=== PATIENT | female | born 1995 | race American Indian/Alaskan Native ===

== ENCOUNTER 2016-09-01 01:42 | Emergency (ER) | payer SELFPAY | END 2016-09-01 05:23 | disposition left against medical advice (07) | LOC: ED 01:42 | DX: S80.211A Abrasion, right knee, initial encounter (principal); S50.312A Abrasion of left elbow, initial encounter; S00.81XA Abrasion of other part of head, initial encounter; X58.XXXA Exposure to other specified factors, initial encounter; Y93.9 Activity, unspecified; Y99.9 Unspecified external cause status; Y92.89 Other specified places as the place of occurrence of the external cause; Z53.21 Procedure and treatment not carried out due to patient leaving prior to being seen by health care provider ==

== ENCOUNTER 2016-11-03 21:34 | Emergency (ER) | payer SELFPAY ==
[2016-11-03 21:50] VITALS: BP 122/70
[2016-11-03] MEDS ORDERED: DUONEB 0.5 MG-3 MG/3 ML SOLN IH ONE ×2 (21:55→22:06)
[2016-11-04] MEDS ORDERED: DUONEB 0.5 MG-3 MG/3 ML SOLN IH SCH (08:00)
== END 2016-11-04 07:12 | disposition left against medical advice (07) ==
LOC: ED 21:34
DX: R06.00 Dyspnea, unspecified (principal); Z53.21 Procedure and treatment not carried out due to patient leaving prior to being seen by health care provider

== ENCOUNTER 2019-01-31 22:05 | Emergency (ER) | payer SELFPAY ==
[2019-02-01] MEDS ORDERED: PROVENTIL IH ONE (00:35)
[2019-02-01] MEDS ORDERED: ATROVENT IH ONE (00:35)
[2019-02-01] MEDS ORDERED: DECADRON IM ONE (00:35)
[2019-02-01] MEDS ORDERED: DELTASONE PO ONE (00:54)
--- NOTE | 2019-02-01 00:58 | Emergency Department Report ---
ED Asthma HPI - General Chief Complaint: Dyspnea/Respdistress Stated Complaint: CHEST PAIN, WHEEZING, CHEST TIGHTNESS Time Seen by Provider: 02/01/19 00:31 Source: patient Mode of arrival: Ambulatory Limitations: No Limitations - History of Present Illness Initial Comments: Patient is a 23-year-old female presents to emergency room with complaints of an asthma exacerbation that occurred 4 hours ago. she has associated shortness of breath, wheezing, chest tightness. she denies any fever, cough, rhinorrhea, any other symptoms. She has a past medical history of asthma and uses an albuterol inhaler. She ran out of her inhaler this morning. She states she was last admitted for her asthma 5 years ago. she denies any other past medical history or allergies to medications. She does not have a primary care doctor and states she usually goes to [facility] to have her medications refilled. - Related Data Previous Rx's Medication Instructions Recorded Last Taken Type ALBUTEROL Inhaler (OR & NICU) 2 puff IH QID PRN #1 inhalation 02/01/19 Unknown Rx [ProAir HFA Inhaler] predniSONE [Deltasone] 40 mg PO QDAY 5 Days #10 tab 02/01/19 Unknown Rx Allergies Allergy/AdvReac Type Severity Reaction Status Date / Time carrot Allergy Angioedema Verified 09/01/16 01:50 peanut AdvReac Unknown Verified 05/26/15 01:58 fruit Allergy Angioedema Uncoded 09/01/16 01:50 ED Review of Systems ROS: Stated complaint: CHEST PAIN, WHEEZING, CHEST TIGHTNESS Other details as noted in HPI Comment: All other systems reviewed and negative ED Past Medical Hx - Past Medical History Hx Asthma: Yes - Surgical History Past Surgical History?: No - Social History Smoking Status: Never Smoker - Medications Home Medications: Home Medications Medication Instructions Recorded Confirmed Last Taken Type ALBUTEROL Inhaler (OR & NICU) 2 puff IH QID PRN #1 inhalation 02/01/19 Unknown Rx [ProAir HFA Inhaler] predniSONE [Deltasone] 40 mg PO QDAY 5 Days #10 tab 02/01/19 Unknown Rx ED Physical Exam - General Limitations: No Limitations General appearance: alert, in no apparent distress - Head Head exam: Present: atraumatic, normocephalic - Eye Eye exam: Present: normal appearance - ENT ENT exam: Present: normal orophraynx, mucous membranes moist - Respiratory Respiratory exam: Present: wheezes (upper lung thurman bilaterally), decreased breath sounds (bases), prolonged expiratory. Absent: respiratory distress, rales, rhonchi, stridor, chest wall tenderness, accessory muscle use - Cardiovascular Cardiovascular Exam: Present: regular rate, normal rhythm, normal heart sounds. Absent: systolic murmur, diastolic murmur, rubs, gallop - Neurological Exam Neurological exam: Present: alert, oriented X3 - Psychiatric Psychiatric exam: Present: normal affect, normal mood - Skin Skin exam: Present: warm, dry, intact ED Course Vital Signs 01/31/19 02/01/19 02/01/19 22:08 01:05 02:45 Temperature 98.3 F 98.6 F Pulse Rate 86 73 Pulse Rate [ 82 Bilateral Throughout] Respiratory 20 20 Rate Respiratory 18 Rate [Bilateral Throughout] Blood Pressure 125/71 Blood Pressure 122/70 [Left] O2 Sat by Pulse 99 100 Oximetry - Reevaluation(s) Reevaluation #1: 02/01/19 02:24 s/p nebulizer treatment, pt now has good air movement, wheezing has signficantly improved ED Medical Decision Making - Medical Decision Making Patient is a 23-year-old female presents to emergency room with complaints of an asthma exacerbation that occurred 4 hours ago. she has associated shortness of breath, wheezing, chest tightness. she denies any fever, cough, rhinorrhea, any other symptoms. She has a past medical history of asthma and uses an albuterol inhaler. She ran out of her inhaler this morning. She states she was last admitted for her asthma 5 years ago. she denies any other past medical history or allergies to medications. She does not have a primary care doctor and states she usually goes to [facility] to have her medications refilled. on exam: wheezing in the upper lung thurman bilaterally, decreased breath sounds in the lower lung thurman bilaterally, prolonged expiratory. pt refused chest xray. pt refused IM decadron or IV medication. pt states she just wants oral steroids. she states the "shot hurts too bad" pt given neb tx and oral steroids. wheezing significantly improved, pt has good air movement. vitals are normal. pt given prescription for inhaler and oral steroids. advised pt to take medication as prescribed. Please follow up with a primary care doctor in the next 2-3 days. given a list of community resources so that you can have your asthma medications refilled on a regular basis by a primary care doctor. Return to the emergency room for any new or worsening symptoms. Critical care attestation.: If time is entered above; I have spent that time in minutes in the direct care of this critically ill patient, excluding procedure time. ED Disposition Clinical Impression: Asthma Qualifiers: Asthma severity: unspecified severity Asthma persistence: unspecified Asthma complication type: with acute exacerbation Qualified Code(s): J45.901 - Unspecified asthma with (acute) exacerbation Disposition: TO HOME OR SELFCARE Is pt being admited?: No Does the pt Need Aspirin: No Condition: Stable Instructions: Asthma (ED) Additional Instructions: Take medication as prescribed. Please follow up with a primary care doctor in the next 2-3 days. given a list of community resources so that you can have your asthma medications refilled on a regular basis by a primary care doctor. Return to the emergency room for any new or worsening symptoms. Prescriptions: predniSONE [Deltasone] 40 mg PO QDAY 5 Days #10 tab ALBUTEROL Inhaler (OR & NICU) [ProAir HFA Inhaler] 2 puff IH QID PRN #1 inhalation PRN Reason: Shortness Of Breath Referrals: NANDO HILL MD [Primary Care Provider] - 2-3 Days [facility] [Outside] - 2-3 Days [facility] [Outside] - 2-3 Days Time of Disposition: 02:26 Print Language: EMIRATI
[2019-02-01 05:06] VITALS: BP 122/70
== END 2019-02-01 02:45 | disposition home or self-care (01) ==
LOC: ED 22:05
DX: J45.901 Unspecified asthma with (acute) exacerbation (principal); Z91.018 Allergy to other foods
CPT/HCPCS: 93005; 93010; 94644; 96372; 99283; J1100; J7512

== ENCOUNTER 2019-04-18 10:00 | Emergency (ER) | payer SELFPAY ==
[2019-04-18] MEDS ORDERED: IPRATROPIUM/ALBUTEROL SULFATE 3 ML AMPUL.NEB IH ONE (10:05)
[2019-04-18] MEDS ORDERED: ALBUTEROL 2.5 MG/3 ML NEBU IH ONE (10:19)
[2019-04-18] MEDS ORDERED: IPRATROPIUM 0.02% NEBU 2.5 ML IH ONE (10:19)
[2019-04-18] MEDS ORDERED: methylPREDNISolone Sod Succinate 125 MG/2 ML INJ IM ONE (10:20)
--- NOTE | 2019-04-18 10:25 | Emergency Department Report ---
ED Asthma HPI - General Chief Complaint: Dyspnea/Respdistress Stated Complaint: ASTHMA ATTACK Time Seen by Provider: 04/18/19 10:14 Source: patient Mode of arrival: Ambulatory Limitations: No Limitations - History of Present Illness Initial Comments: 24-year-old -Irish female patient with history of asthma presents today with asthma exacerbation beginning this morning. Patient states she ran out of her albuterol inhaler yesterday. She denies any daily medication for her asthma, fever/chills/sweats/chest pain, productive cough, control, or history of DVT/PE/leg pain or swelling/recent long travel. She states this feels like her asthma. -: Sudden, hour(s) Asthma History: childhood onset Context: ran out of meds Associated Symptoms: dry cough - Related Data Current Asthma Therapy: inhaled bronchodilator Previous Rx's Medication Instructions Recorded Last Taken Type ALBUTEROL Inhaler (OR & NICU) 2 puff IH QID PRN #1 inhalation 04/18/19 Unknown Rx [ProAir HFA Inhaler] predniSONE [Deltasone] 20 mg PO TID 3 Days #9 tab 04/18/19 Unknown Rx Allergies Allergy/AdvReac Type Severity Reaction Status Date / Time carrot Allergy Angioedema Verified 09/01/16 01:50 peanut AdvReac Unknown Verified 05/26/15 01:58 fruit Allergy Angioedema Uncoded 09/01/16 01:50 ED Review of Systems ROS: Stated complaint: ASTHMA ATTACK Other details as noted in HPI Constitutional: denies: chills, fever ENT: denies: throat pain Respiratory: cough, shortness of breath Cardiovascular: denies: chest pain, palpitations, edema, syncope Endocrine: denies: excessive sweating Gastrointestinal: denies: abdominal pain, nausea, vomiting Musculoskeletal: denies: myalgia Skin: denies: rash, lesions Neurological: denies: headache, weakness Psychiatric: denies: anxiety ED Past Medical Hx - Past Medical History Previous Medical History?: Yes Hx Asthma: Yes - Surgical History Past Surgical History?: No - Social History Smoking Status: Never Smoker Substance Use Type: None - Medications Home Medications: Home Medications Medication Instructions Recorded Confirmed Last Taken Type ALBUTEROL Inhaler (OR & NICU) 2 puff IH QID PRN #1 inhalation 04/18/19 Unknown Rx [ProAir HFA Inhaler] predniSONE [Deltasone] 20 mg PO TID 3 Days #9 tab 04/18/19 Unknown Rx ED Physical Exam - General Limitations: No Limitations General appearance: alert, in no apparent distress - Head Head exam: Present: atraumatic, normocephalic - Eye Eye exam: Present: normal appearance - ENT ENT exam: Present: mucous membranes moist - Neck Neck exam: Present: normal inspection. Absent: lymphadenopathy - Respiratory Respiratory exam: Present: wheezes. Absent: rales, rhonchi, chest wall tenderness, accessory muscle use - Cardiovascular Cardiovascular Exam: Present: regular rate, normal rhythm, tachycardia (mild), normal heart sounds - GI/Abdominal GI/Abdominal exam: Present: soft, normal bowel sounds. Absent: distended, tenderness - Rectal Rectal exam: Present: deferred - Extremities Exam Extremities exam: Absent: pedal edema, calf tenderness - Back Exam Back exam: Present: full ROM - Neurological Exam Neurological exam: Present: alert, oriented X3 - Psychiatric Psychiatric exam: Present: normal affect, normal mood - Skin Skin exam: Present: warm, dry, intact, normal color. Absent: rash ED Course Vital Signs 04/18/19 04/18/19 04/18/19 10:04 10:28 11:45 Temperature 98.3 F 98.4 F Pulse Rate 110 H 101 H Pulse Rate [ 107 H Anterior Bilateral Throughout] Respiratory 16 16 Rate Respiratory 20 Rate [Anterior Bilateral Throughout] Blood Pressure 141/62 Blood Pressure 105/63 [Right] O2 Sat by Pulse 94 97 Oximetry ED Medical Decision Making - Medical Decision Making Patient with history of asthma presents for asthma exacerbation starting this morning. She states she ran out of her albuterol inhaler. Patient states this does feel like her normal asthma exacerbation and refuses any labs or chest x- ray. After one continuous neb and prednisone 20 mg by mouth patient states shortness of breath has fully resolved. She denies any chest pain, leg swelling, fever, or other complaints. Heart rate remains mildly elevated at 101likely due to neb treatment. Albuterol inhaler refilled. Recommend follow- up at [facility]. Return precautions were discussed in detail with patient who states understanding. Critical care attestation.: If time is entered above; I have spent that time in minutes in the direct care of this critically ill patient, excluding procedure time. ED Disposition Clinical Impression: Asthma exacerbation Qualifiers: Asthma severity: mild Asthma persistence: intermittent Qualified Code(s): J45.21 - Mild intermittent asthma with (acute) exacerbation Disposition: TO HOME OR SELFCARE Is pt being admited?: No Condition: Stable Instructions: Asthma (ED) Prescriptions: predniSONE [Deltasone] 20 mg PO TID 3 Days #9 tab ALBUTEROL Inhaler (OR & NICU) [ProAir HFA Inhaler] 2 puff IH QID PRN #1 inhalation PRN Reason: Shortness Of Breath Referrals: [facility] [Provider Group] - 3-5 Days Time of Disposition: 11:34
[2019-04-18] MEDS ORDERED: predniSONE 20 MG TAB PO NR (11:00)
[2019-04-18 11:46] VITALS: BP 105/63
== END 2019-04-18 12:18 | disposition home or self-care (01) ==
LOC: ED 10:00
DX: J45.901 Unspecified asthma with (acute) exacerbation (principal); Z91.010 Allergy to peanuts; Z91.018 Allergy to other foods; Z79.899 Other long term (current) drug therapy
CPT/HCPCS: 94644; 99282; J2930

== ENCOUNTER 2020-03-08 19:54 | Emergency (ER) | payer SELFPAY ==
--- NOTE | 2020-03-08 21:54 | XRay Report ---
CHEST 2 VIEWS INDICATION / CLINICAL INFORMATION: cough and wheezing.. COMPARISON: 06/13/2019 FINDINGS: SUPPORT DEVICES: None. HEART / MEDIASTINUM: No significant abnormality. LUNGS / PLEURA: No significant pulmonary or pleural abnormality. No pneumothorax. ADDITIONAL FINDINGS: No significant additional findings. IMPRESSION: 1. No acute findings. Signer Name: Bijan Nichole MD Signed: 03/08/2020 9:49 PM Workstation Name: [id number]
[2020-03-08] MEDS ORDERED: ALBUTEROL 2.5 MG/3 ML NEBU IH ONE (22:24)
[2020-03-08] MEDS ORDERED: IPRATROPIUM 0.02% NEBU 2.5 ML IH ONE (22:24)
--- NOTE | 2020-03-08 23:37 | Emergency Department Report ---
ED General Adult HPI - General Chief complaint: Adult Asthma Stated complaint: CHEST PAIN ASTHMA Time Seen by Provider: 03/08/20 22:28 Source: patient Mode of arrival: Ambulatory Limitations: No Limitations - History of Present Illness Initial comments: 25-year-old -[place] female patient presents with complaints of asthma exacerbation starting this morning. Patient states her pro-air and nebulizer at home were not working for her symptoms. She believes her asthma became exacerbated from smoking hookah last night while out at a club. She denies any cough, hemoptysis, fever/chills/sweats, chest pain, leg pain/swelling, abdominal pain, nausea/vomiting/diarrhea. Patient states this feels like her asthma. -: Sudden - Related Data Previous Rx's Medication Instructions Recorded Last Taken Type predniSONE [Deltasone] 20 mg PO TID 3 Days #9 tab 04/18/19 Unknown Rx Albuterol Mdi (or & Nicu Only) 2 puff IH QID PRN #1 inhalation 03/08/20 Unknown Rx [ProAir HFA Inhaler] Diclofenac Sodium 75 mg PO BID PRN #14 tablet.dr 03/08/20 Unknown Rx Prednisone [predniSONE 10 mg 10 mg PO .TAPER #1 tab.ds.pk 03/08/20 Unknown Rx (6-Day Pack, 21 Tabs)] Allergies Allergy/AdvReac Type Severity Reaction Status Date / Time carrot Allergy Angioedema Verified 09/01/16 01:50 peanut AdvReac Unknown Verified 05/26/15 01:58 fruit Allergy Angioedema Uncoded 09/01/16 01:50 ED Review of Systems ROS: Stated complaint: CHEST PAIN ASTHMA Other details as noted in HPI Constitutional: denies: chills, diaphoresis, fever, malaise, weakness ENT: denies: throat pain Respiratory: shortness of breath. denies: cough Cardiovascular: denies: chest pain Gastrointestinal: denies: abdominal pain, nausea, vomiting Musculoskeletal: denies: joint swelling, arthralgia Skin: denies: rash, lesions, change in color Neurological: denies: headache Hematological/Lymphatic: denies: swollen glands ED Past Medical Hx - Past Medical History Previous Medical History?: Yes Hx Asthma: Yes - Surgical History Past Surgical History?: No - Social History Smoking Status: Never Smoker Substance Use Type: None - Medications Home Medications: Home Medications Medication Instructions Recorded Confirmed Last Taken Type predniSONE [Deltasone] 20 mg PO TID 3 Days #9 tab 04/18/19 Unknown Rx Albuterol Mdi (or & Nicu Only) 2 puff IH QID PRN #1 inhalation 03/08/20 Unknown Rx [ProAir HFA Inhaler] Diclofenac Sodium 75 mg PO BID PRN #14 tablet. 03/08/20 Unknown Rx Prednisone [predniSONE 10 mg 10 mg PO .TAPER #1 tab.ds.pk 03/08/20 Unknown Rx (6-Day Pack, 21 Tabs)] ED Physical Exam - General Limitations: No Limitations General appearance: alert, in no apparent distress - Head Head exam: Present: atraumatic, normocephalic - Eye Eye exam: Present: normal appearance - ENT ENT exam: Present: mucous membranes moist - Neck Neck exam: Present: normal inspection - Respiratory Respiratory exam: Present: wheezes. Absent: normal lung sounds bilaterally, respiratory distress, rales, rhonchi, chest wall tenderness, accessory muscle u se - Cardiovascular Cardiovascular Exam: Present: regular rate, normal rhythm. Absent: systolic murmur, diastolic murmur, rubs, gallop - GI/Abdominal GI/Abdominal exam: Present: soft. Absent: tenderness - Extremities Exam Extremities exam: Present: full ROM. Absent: calf tenderness - Back Exam Back exam: Present: normal inspection - Neurological Exam Neurological exam: Present: alert, oriented X3 - Psychiatric Psychiatric exam: Present: normal affect, normal mood - Skin Skin exam: Present: warm, dry, intact, normal color. Absent: rash, cyanosis, diaphoretic, erythema ED Course Vital Signs 03/08/20 03/09/20 20:58 00:15 Temperature 98.8 F 98.1 F Pulse Rate 86 87 Respiratory 16 17 Rate Blood Pressure 120/63 Blood Pressure 127/77 [Left] O2 Sat by Pulse 98 99 Oximetry ED Medical Decision Making - Radiology Data Radiology results: report reviewed CHEST 2 VIEWS INDICATION / CLINICAL INFORMATION: cough and wheezing.. COMPARISON: 06/13/2019 FINDINGS: SUPPORT DEVICES: None. HEART / MEDIASTINUM: No significant abnormality. LUNGS / PLEURA: No significant pulmonary or pleural abnormality. No pneumothorax. ADDITIONAL FINDINGS: No significant additional findings. IMPRESSION: 1. No acute findings. - Medical Decision Making 25-year-old -Bul[place] female patient presents with complaints of asthma exacerbation starting this morning. Patient states her pro-air and nebulizer at home were not working for her symptoms. She believes her asthma became exacerbated from smoking hookah last night while out at a club. She denies any cough, hemoptysis, fever/chills/sweats, chest pain, leg pain/swelling, abdominal pain, nausea/vomiting/diarrhea. Patient states this feels like her asthma. Wheezing noted diffusely in the lungs on exam. Patient given hour-long DuoNeb. On repeat exam, wheezing has resolved. Chest x-ray is normal. Patient states she is feeling well and denies any further wheezing or shortness of breath. Refill given for pro-air. Medrol Dosepak for home. Her vitals are normal, she is well-appearing, and she is stable for discharge home. Strict return precautions were discussed in detail with patient who verbalized understanding peer Critical care attestation.: If time is entered above; I have spent that time in minutes in the direct care of this critically ill patient, excluding procedure time. ED Disposition Clinical Impression: Asthma exacerbation Qualifiers: Asthma severity: mild Asthma persistence: intermittent Qualified Code(s): J45.21 - Mild intermittent asthma with (acute) exacerbation Disposition: DC-01 TO HOME OR SELFCARE Is pt being admited?: No Condition: Stable Instructions: Asthma (ED) Prescriptions: Diclofenac Sodium 75 mg PO BID PRN #14 tablet. PRN Reason: back pain Prednisone [predniSONE 10 mg (6-Day Pack, 21 Tabs)] 10 mg PO .TAPER #1 tab.ds.pk Albuterol Mdi (or & Nicu Only) [ProAir HFA Inhaler] 2 puff IH QID PRN #1 inhalation PRN Reason: Shortness Of Breath Referrals: PRIMARY CARE,MD [Primary Care Provider] - 3-5 Days
[2020-03-09 00:48] VITALS: BP 127/77
== END 2020-03-09 00:15 | disposition home or self-care (01) ==
LOC: ED 19:54
DX: J45.901 Unspecified asthma with (acute) exacerbation (principal); Z79.899 Other long term (current) drug therapy; Z91.010 Allergy to peanuts; Z91.018 Allergy to other foods
CPT/HCPCS: 71046; 93005; 94640; 99283

== ENCOUNTER 2020-03-16 21:10 | Inpatient (IN) | payer OTHER ==
[2020-03-16] MEDS ORDERED: IPRATROPIUM 0.02% NEBU 2.5 ML IH ONE ×3 (21:16→22:02)
[2020-03-16] MEDS ORDERED: ALBUTEROL 2.5 MG/3 ML NEBU IH ONE ×3 (21:16→22:02)
[2020-03-16] MEDS ORDERED: MAGNESIUM SULFATE 2 GM/50 ML BAG IV ONE ×2 (21:17→21:19)
[2020-03-16] MEDS ORDERED: methylPREDNISolone Sod Succinate 125 MG/2 ML INJ IV ONE (21:17)
[2020-03-16] MEDS ORDERED: EPINEPHrine/PF 1 MG/1 ML INJ ONE (21:18)
[2020-03-16] MEDS ORDERED: methylPREDNISolone Sod Succinate 125 MG/2 ML INJ ONE (21:19)
[2020-03-16] MEDS ORDERED: EPINEPHrine/PF 1 MG/1 ML INJ SUB-Q ONE (21:19)
[2020-03-16] MEDS ORDERED: ROCURONIUM 50 MG/5 ML INJ IV ONE ×2 (21:20→23:51)
[2020-03-16] MEDS ORDERED: ETOMIDATE 20 MG/10 ML INJ IV ONE ×2 (21:20→23:50)
[2020-03-16] MEDS ORDERED: SODIUM CHLORIDE 0.9% 1000 ML 1,000 ML ONE (21:21)
[2020-03-16] MEDS ORDERED: LORazepam 2 MG/ML VIAL ONE (21:23)
--- NOTE | 2020-03-16 21:29 | Emergency Department Report ---
ED Asthma HPI - General Chief Complaint: Dyspnea/Respdistress Stated Complaint: DAFNE/ASTHMA PUI?: No Time Seen by Provider: 03/16/20 21:10 Source: patient Mode of arrival: Stretcher Limitations: No Limitations - History of Present Illness Initial Comments: Patient states she was eating salad and then went into an asthma attack as well as hives. Patient states she is not sure what allergen she was exposed to. Patient states she has a long history of asthma and has been intubated in the past. Patient states her shortness of breath is worse with movement better with rest. Patient states she has very sensitive asthma. Patient states she was eating a salad and instantly had difficulties breathing, feels like her throat was swelling. Patient denies recent travel. Patient denies recent international travel. Patient denies exposure to the novel coronavirus. Patient denies sick contacts. Patient denies fever and chills. Patient denies cough. Patient denies diarrhea. Patient denies coming in contact with anybody with symptoms of the novel coronavirus. MD Complaint: "asthma attack", shortness of breath, wheezing -: Sudden Severity: severe Context: allergen exposure Associated Symptoms: dry cough - Related Data Current Asthma Therapy: none Previous Rx's Medication Instructions Recorded Last Taken Type predniSONE [Deltasone] 20 mg PO TID 3 Days #9 tab 04/18/19 Unknown Rx Albuterol Mdi (or & Nicu Only) 2 puff IH QID PRN #1 inhalation 03/08/20 Unknown Rx [ProAir HFA Inhaler] Diclofenac Sodium 75 mg PO BID PRN #14 tablet.dr 03/08/20 Unknown Rx Prednisone [predniSONE 10 mg 10 mg PO .TAPER #1 tab.ds.pk 03/08/20 Unknown Rx (6-Day Pack, 21 Tabs)] Allergies Allergy/AdvReac Type Severity Reaction Status Date / Time carrot Allergy Angioedema Verified 09/01/16 01:50 peanut AdvReac Unknown Verified 05/26/15 01:58 fruit Allergy Angioedema Uncoded 09/01/16 01:50 ED Review of Systems ROS: Stated complaint: DAFNE/ASTHMA Other details as noted in HPI Comment: All other systems reviewed and negative ED Past Medical Hx - Past Medical History Previous Medical History?: Yes Hx Asthma: Yes - Surgical History Past Surgical History?: No - Family History Family history: no significant - Social History Smoking Status: Never Smoker Substance Use Type: None - Medications Home Medications: Home Medications Medication Instructions Recorded Confirmed Last Taken Type predniSONE [Deltasone] 20 mg PO TID 3 Days #9 tab 04/18/19 Unknown Rx Albuterol Mdi (or & Nicu Only) 2 puff IH QID PRN #1 inhalation 03/08/20 Unknown Rx [ProAir HFA Inhaler] Diclofenac Sodium 75 mg PO BID PRN #14 tablet.dr 03/08/20 Unknown Rx Prednisone [predniSONE 10 mg 10 mg PO .TAPER #1 tab.ds.pk 03/08/20 Unknown Rx (6-Day Pack, 21 Tabs)] ED Physical Exam - General Limitations: Physical Limitation General appearance: alert, in distress - Head Head exam: Present: atraumatic, normocephalic - Eye Eye exam: Present: normal appearance, PERRL Pupils: Present: normal accommodation - ENT ENT exam: Present: mucous membranes dry - Neck Neck exam: Present: normal inspection, full ROM. Absent: tenderness - Respiratory Respiratory exam: Present: respiratory distress, wheezes, chest wall tenderness, accessory muscle use, decreased breath sounds - Cardiovascular Cardiovascular Exam: Present: regular rate, normal rhythm. Absent: systolic murmur, diastolic murmur, rubs, gallop - GI/Abdominal GI/Abdominal exam: Present: soft, normal bowel sounds. Absent: distended, tenderness, guarding - Rectal Rectal exam: Present: deferred - Extremities Exam Extremities exam: Present: normal inspection - Back Exam Back exam: Present: normal inspection - Neurological Exam Neurological exam: Present: alert, oriented X3 - Psychiatric Psychiatric exam: Present: normal affect, normal mood - Skin Skin exam: Present: warm, dry, intact, normal color. Absent: rash ED Course Vital Signs 03/16/20 03/16/20 03/16/20 21:59 22:04 23:34 Pulse Rate 106 H 95 H Pulse Rate [ 105 H Bilateral Throughout] Respiratory 20 Rate [Bilateral Throughout] Blood Pressure 165/82 138/68 O2 Sat by Pulse 98 100 Oximetry - Reevaluation(s) Reevaluation #1: After initial evaluation 3. Patient became unresponsive. Patient will be intubated. Patient was hypoxic and unable to maintain airway. Patient will be transferred to room 20. Respiratory notified. 03/16/20 21:15 Reevaluation #2: Patient intubated without difficulty. See procedure note. Lowest oxygen sat 7 0% 03/16/20 21:25 Reevaluation #3: Patient on the ekg monitor tech. Patient's blood pressure improved. Patient's vital signs have stabilized. Patient has a Potts placed. Patient will receive another breathing treatment. Patient still wheezing. 03/16/20 21:43 Reevaluation #4: Patient moving. Patient will require more sedation. Patient restrained. Patient placed on a fentanyl drip. 03/16/20 23:13 - Consultations Consultation #1: Hospitalist consulted for admission. Hospitalist to admit patient. 03/16/20 23:17 - Intubation Time Out Performed: Yes Sedative: Etomidate Paralytic: Rocuronium Laryngoscope: fiberoptic video scope Size: 4 Assist Device Used: fiberoptic device ET Tube Size: 7.5 Tube Secured Depth (cm): 22 Tube Secured Location: teeth Tube Placement Confirmation: visualized tube passing t, equal breath sounds adriana at, no breath sounds over epi, confirmation by capnometr Patient Tolerated Procedure: well, no complications Intubation Complications: none ED Medical Decision Making - Lab Data Result diagrams: 03/16/20 21:43 03/16/20 21:43 - Radiology Data Radiology results: report reviewed, image reviewed interpreted by me: Chest x-ray: No pneumonia, no pneumothorax, no foreign body, no osseous findings, no acute findings. ET tube in good placement. NG tube in good placement. CHEST 1 VIEW, 03/16/2020 9:37 PM CLINICAL INFORMATION/INDICATION: Shortness of breath. Endotracheal tube placement COMPARISON: Chest radiograph, 03/08/2020 FINDINGS: SUPPORT DEVICES: Endotracheal tube has been placed with tip approximately 3.5 cm above the level of the ester. An esophagogastric tube has also been placed with distal and below the level of the diaphragm.. HEART: The cardiac silhouette is normal in size. LUNGS/PLEURA: The lungs are clear of focal airspace disease, pleural effusion or pneumothorax. ADDITIONAL FINDINGS: No additional acute findings. IMPRESSION: 1. Placement of endotracheal tube and esophagogastric tube as above - Medical Decision Making Patient is a 25-year-old female that presents emergency room with complaints of difficulty breathing, hives, allergy and allergic reaction. Patient states she was out having a salad and instantly developed symptoms. Patient did not have an EpiPen. Patient came in with severe respiratory distress. Patient eventually unable to maintain airway and patient was intubated. Patient went unresponsive just prior to intubation. Patient tolerated intubation well. Patient's chest x-ray shows adequate placement of the NG tube and ET tube. Patient does not have a pneumonia on x-ray. Patient's labs are essentially unre markable except for lactic acidosis, respiratory acidosis and elevated WBC. Patient given fluids and antibiotics prophylactically. Patient given 3 L of fluid. Patient patient placed on vent with drips for sedation. Patient on propofol and then required more sedation with fentanyl. Patient admitted to the hospitalist service. Patient admitted into the ICU. - Differential Diagnosis Status asthmaticus, respiratory failure, anaphylactic shock, pneumonia Critical Care Time: Yes Critical care time in (mins) excluding proc time.: 45 Critical care attestation.: If time is entered above; I have spent that time in minutes in the direct care of this critically ill patient, excluding procedure time. Critical Care Time: 45 MINUTES ED Disposition Clinical Impression: Respiratory distress, Respiratory acidosis, Lactic acid acidosis Asthma exacerbation Qualifiers: Asthma severity: severe Asthma persistence: persistent Qualified Code(s): J45.51 - Severe persistent asthma with (acute) exacerbation Status asthmaticus Qualifiers: Asthma severity: severe Asthma persistence: persistent Qualified Code(s): J45.52 - Severe persistent asthma with status asthmaticus Anaphylactic reaction Qualifiers: Encounter type: initial encounter Qualified Code(s): T78.2XXA - Anaphylactic shock, unspecified, initial encounter Respiratory failure Qualifiers: Chronicity: acute Respiratory failure complication: hypoxia Qualified Code(s): J96.01 - Acute respiratory failure with hypoxia Disposition: 09 OP ADMIT IP TO THIS HOSP Is pt being admited?: Yes Does the pt Need Aspirin: No Condition: Critical Time of Disposition: 23:14
[2020-03-16] MEDS ORDERED: LIP THERAPY VASELINE TP PRN (21:30)
[2020-03-16] MEDS ORDERED: MINERAL OIL/PETROLATUM, WHITE OPHTH OINT 3.5 GM OU PRN (21:30)
[2020-03-16] MEDS ORDERED: SODIUM CHLORIDE 0.9% 1000 ML 1,000 ML IV ONE (21:39)
[2020-03-16] MEDS ORDERED: SODIUM CHLORIDE 0.9% 1000 ML IV SOLN IV ONE (21:40)
[2020-03-16] MEDS ORDERED: CEFEPIME/NS 2 GM/100 ML 2 GM/100 ML BAG IV ONE (21:41)
[2020-03-16] MEDS ORDERED: HYDROGEN PEROXIDE 118 ML SOLUTION ONE (21:56)
[2020-03-16 21:59] LABS: Hematocrit 40.9 % (30.3-42.9); Hemoglobin 13.4 gm/dl (10.1-14.3); Mean Corpuscular HGB Conc 33 % (30-34); Mean Corpuscular Volume 99 fl (79-97); Platelet Count 259 K/mm3 (140-440); Red Blood Count 4.14 M/mm3 (3.65-5.03)
[2020-03-16 22:02] LABS: Bilirubin,Urine NEG (Negative); Blood,Urine SM (Negative); Color,Urine Yellow (Yellow); Mucus,Urine FEW /HPF; Protein,Urine <15 mg/dL mg/dL (Negative); RBC,Urine < 1.0 /HPF (0.0-6.0); Urobilinogen,Urine < 2.0 mg/dL (<2.0)
--- NOTE | 2020-03-16 22:14 | XRay Report ---
CHEST 1 VIEW, 03/16/2020 9:37 PM CLINICAL INFORMATION/INDICATION: Shortness of breath. Endotracheal tube placement COMPARISON: Chest radiograph, 03/08/2020 FINDINGS: SUPPORT DEVICES: Endotracheal tube has been placed with tip approximately 3.5 cm above the level of t he ester. An esophagogastric tube has also been placed with distal and below the level of the diaphr agm.. HEART: The cardiac silhouette is normal in size. LUNGS/PLEURA: The lungs are clear of focal airspace disease, pleural effusion or pneumothorax. ADDITIONAL FINDINGS: No additional acute findings. IMPRESSION: 1. Placement of endotracheal tube and esophagogastric tube as above Signer Name: Janna Mendez MD Signed: 03/16/2020 10:10 PM Workstation Name: [id number]
[2020-03-16 22:22] LABS: Alanine Aminotransferase 11 units/L (7-56); Albumin 4.2 g/dL (3.9-5); BUN/Creatinine Ratio 18; Blood Urea Nitrogen 16 mg/dL (7-17); Calcium 8.9 mg/dL (8.4-10.2); Hemolysis Index 60
[2020-03-16 23:04] LABS: Band Neutrophils # (Manual) 0.4 K/mm3; Eosinophils % (Manual) 0 % (0.0-4.3); Ovalocytes Rare; Platelet Estimate Consistent w Auto; Total Cells Counted 100
[2020-03-16] MEDS ORDERED: fentaNYL 100 MCG/2 ML INJ IV PRN (23:11)
[2020-03-16] MEDS ORDERED: fentaNYL DRIP Premix 2,000 MCG/100 ML BAG IV ONE (23:14)
[2020-03-16] MEDS: fentaNYL DRIP Premix 2,000 MCG/100 ML BAG IV SCH (23:27)
[2020-03-17] MEDS ORDERED: ONDANSETRON 4 MG/2 ML INJ IV PRN (00:13)
[2020-03-17] MEDS ORDERED: SODIUM CHLORIDE 0.9% 1000 ML 1,000 ML IV SCH (00:15)
--- NOTE | 2020-03-17 00:27 | History and Physical Report ---
History of Present Illness Date of examination: 03/16/20 Date of admission: 03/16/2020 Chief complaint: Asthma attack Hives History of present illness: 25-year-old -[place] female with known history of asthma and peanut allergy presents to the emergency room today with an asthma attack and hives. Patient was eating some salad when symptoms suddenly developed. She started having difficulty breathing and felt her throat was closing up. She was found to be in severe respiratory distress upon arrival and subsequently intubated. Patient already intubated during my evaluation and therefore most of the history was gotten from the emergency room physician. Review of our records indicates she has been intubated on multiple occasions. Work-up in the emergency room did not reveal any acute abnormality on the chest x-ray. Patient is being admitted to the intensive care unit for asthma exacerbation/anaphylactic reaction. Past History Past Medical History: other (Asthma with h/o multiple intubations) Past Surgical History: No surgical history Social history: no significant social history Family history: no significant family history Medications and Allergies Allergies Allergy/AdvReac Type Severity Reaction Status Date / Time carrot Allergy Angioedema Verified 09/01/16 01:50 peanut AdvReac Unknown Verified 05/26/15 01:58 fruit Allergy Angioedema Uncoded 09/01/16 01:50 Home Medications Medication Instructions Recorded Confirmed Last Taken Type predniSONE [Deltasone] 20 mg PO TID 3 Days #9 tab 04/18/19 Unknown Rx Albuterol Mdi (or & Nicu Only) 2 puff IH QID PRN #1 inhalation 03/08/20 Unknown Rx [ProAir HFA Inhaler] Diclofenac Sodium 75 mg PO BID PRN #14 tablet.dr 03/08/20 03/17/20 Unknown Rx Prednisone [predniSONE 10 mg 10 mg PO .TAPER #1 tab.ds.pk 03/08/20 Unknown Rx (6-Day Pack, 21 Tabs)] Active Meds: Active Medications Albuterol/Ipratropium (Duoneb *Not For Prn Use*) 1 ampul IH Q6HRT [facility] Fentanyl (Sublimaze) 50 mcg IV Q10MIN PRN PRN Reason: ANALGESIA Hydrophilic Ointment (Vaseline Lip Therapy) 1 applic TP Q2HR PRN PRN Reason: Dry Lips Propofol (Diprivan 10 Mg/Ml) 1,000 mg in 100 mls @ 3.198 mls/hr IV TITR GARY; Protocol Last Admin: 03/16/20 21:40 Dose: 5 mcg/kg/min, 3.198 mls/hr Documented by: Fentanyl Citrate (Fentanyl Drip Premix) 2,000 mcg in 100 mls @ 4.309 mls/hr IV TITR [facility]ARY; Protocol Last Admin: 03/16/20 23:27 Dose: 1 mcg/kg/hr, 4.309 mls/hr Documented by: Sodium Chloride (Nacl 0.9% 1000 Ml) 1,000 mls @ 75 mls/hr IV DIRECT GAYR Multi-Ingred Cream/Lotion/Oil/Oint (Artificial Tears Ophth Oint) 1 applic OU Q4HR PRN PRN Reason: Dry Eye(s) Ondansetron HCl (Zofran) 4 mg IV Q8H PRN PRN Reason: Nausea And Vomiting Sodium Chloride (Sodium Chloride Flush Syringe 10 Ml) 10 ml IV BID GARY Sodium Chloride (Sodium Chloride Flush Syringe 10 Ml) 10 ml IV PRN PRN PRN Reason: LINE FLUSH Review of Systems ROS unobtainable: due to endotracheal tube Exam - Constitutional Vitals: Temp Pulse Resp BP Pulse Ox 95 H 20 138/68 100 03/16/20 23:34 03/16/20 22:04 03/16/20 23:34 03/16/20 23:34 General appearance: Present: no acute distress, well-nourished - EENT Eyes: Present: PERRL, EOM intact. Absent: scleral icterus ENT: hearing intact, clear oral mucosa, dentition normal - Neck Neck: Present: supple, normal ROM - Respiratory Respiratory effort: normal Respiratory: bilateral: wheezing - Cardiovascular Rhythm: regular Heart Sounds: Present: S1 & S2. Absent: gallop, systolic murmur, diastolic murmur, rub - Extremities Extremities: no ischemia, pulses intact, pulses symmetrical, No edema, Full ROM Peripheral Pulses: within normal limits - Abdominal General gastrointestinal: Present: soft, non-tender, non-distended. Absent: mass - Musculoskeletal Musculoskeletal: strength equal bilaterally - Psychiatric Psychiatric: cooperative - Neurologic Neurologic: CNII-XII intact, other (Intubated and Sedated.) Results - Labs CBC & Chem 7: 03/16/20 21:43 03/16/20 21:43 Labs: Abnormal lab results 03/16/20 03/16/20 03/16/20 Range/Units 21:43 21:43 21:52 WBC 22.3 H (4.5-11.0) K/mm3 MCV 99 H (79-97) fl MCH 33 H (28-32) pg Lymphocytes % (Manual) 42.0 H (13.4-35.0) % Seg Neutrophils # Man 10.5 H (1.8-7.7) K/mm3 Lymphocytes # (Manual) 9.4 H (1.2-5.4) K/mm3 Monocytes # (Manual) 1.3 H (0.0-0.8) K/mm3 Basophils # (Manual) 0.2 H (0.0-0.1) K/mm3 Carbon Dioxide 13 L (22-30) mmol/L Glucose 211 H (65-100) mg/dL Lactic Acid 9.00 H* (0.7-2.0) mmol/L 03/16/20 Range/Units 22:39 WBC (4.5-11.0) K/mm3 MCV (79-97) fl MCH (28-32) pg Lymphocytes % (Manual) (13.4-35.0) % Seg Neutrophils # Man (1.8-7.7) K/mm3 Lymphocytes # (Manual) (1.2-5.4) K/mm3 Monocytes # (Manual) (0.0-0.8) K/mm3 Basophils # (Manual) (0.0-0.1) K/mm3 Carbon Dioxide (22-30) mmol/L Glucose (65-100) mg/dL Lactic Acid 4.40 H* (0.7-2.0) mmol/L Assessment and Plan - Patient Problems (1) Anaphylactic reaction Current Visit: Yes Status: Acute Qualifiers: Encounter type: initial encounter Qualified Code(s): T78.2XXA - Anaphylactic shock, unspecified, initial encounter Plan to address problem: Unclear what patient reacted to today. She has had Solu-Medrol, Benadryl and epinephrine. We will monitor closely in the intensive care unit. (2) Asthma exacerbation Current Visit: Yes Status: Acute Qualifiers: Asthma severity: severe Asthma persistence: persistent Qualified Code(s): J45.51 - Severe persistent asthma with (acute) exacerbation Plan to address problem: Patient continued on nebulizing treatment and IV steroid. Patient currently intubated and has been intubated on multiple occasions. Consult placed to clam treader for further evaluation. (3) Respiratory acidosis Current Visit: Yes Status: Acute Plan to address problem: Secondary to the asthma exacerbation. Will monitor ABG. (4) DVT prophylaxis Current Visit: No Status: Acute Plan to address problem: Patient placed on subcutaneous Lovenox. (5) Full code status Current Visit: Yes Status: Acute
--- NOTE | 2020-03-17 00:37 | XRay Report ---
CHEST 1 VIEW INDICATION: Follow-up respiratory failure COMPARISON: 03/16/2020 FINDINGS: Support devices: Unchanged. Endotracheal tube appears to be in proper position. Heart: Normal and unchanged Lungs/Pleura: There has now developed significant atelectasis of the right upper lobe. Left lung serenity ins fully expanded and clear. IMPRESSION: 1. Right upper lobe atelectasis. Signer Name: Frederick Gonzales MD Signed: 03/17/2020 12:33 AM Workstation Name: [id number]
[2020-03-17] MEDS ORDERED: IPRATROPIUM/ALBUTEROL SULFATE 3 ML AMPUL.NEB IH ONE (02:44)
[2020-03-17] MEDS ORDERED: fentaNYL DRIP Premix 0 MCG/0 ML BAG IV ONE (04:47)
[2020-03-17] MEDS ORDERED: fentaNYL DRIP Premix 2,000 MCG/100 ML BAG IV ONE (05:00)
[2020-03-17] MEDS: fentaNYL DRIP Premix 2,000 MCG/100 ML BAG IV SCH ×2 (05:05→15:37)
[2020-03-17] MEDS: IPRATROPIUM/ALBUTEROL SULFATE 3 ML AMPUL.NEB IH SCH ×4 (05:50→21:05)
--- NOTE | 2020-03-17 10:27 | Event Note ---
Date: 03/17/20 Patient seen and evaluated Medications reviewed Patient still wheezing and tachypneic. Continue present regimen.
[2020-03-17] MEDS ORDERED: SIMPLE SYRUP 15 ML FEEDTUBE PRN ×2 (11:00)
[2020-03-17] MEDS ORDERED: LIPASE 10,500/PROTEASE 25,000/AMYLASE 43,750 (UNITS) DR CAP FEEDTUBE PRN (11:00)
[2020-03-17] MEDS ORDERED: SODIUM BICARBONATE 325 MG TAB FEEDTUBE PRN (11:00)
[2020-03-17] MEDS: methylPREDNISolone Sod Succinate 40 MG/1 ML INJ IV SCH ×2 (14:18→21:30)
--- NOTE | 2020-03-17 17:00 | Consultation ---
History of Present Illness Consult date: 03/17/20 Requesting physician: PHOEBE BORGES Reason for consult: asthma (Status), other (Acute Respiratory Failure on MVS) History of present illness: PULMONARY/CCM CONSULT NOTE (Full dictation # [id number]) Please see dictated notes for full details Past History Past Medical History: other (Asthma with h/o multiple intubations) Past Surgical History: No surgical history Social history: no significant social history Family history: no significant family history Medications and Allergies Allergies Allergy/AdvReac Type Severity Reaction Status Date / Time carrot Allergy Angioedema Verified 09/01/16 01:50 peanut AdvReac Unknown Verified 05/26/15 01:58 fruit Allergy Angioedema Uncoded 09/01/16 01:50 Home Medications Medication Instructions Recorded Confirmed Last Taken Type predniSONE [Deltasone] 20 mg PO TID 3 Days #9 tab 04/18/19 Unknown Rx Albuterol Mdi (or & Nicu Only) 2 puff IH QID PRN #1 inhalation 03/08/20 Unknown Rx [ProAir HFA Inhaler] Diclofenac Sodium 75 mg PO BID PRN #14 tablet.dr 03/08/20 03/17/20 Unknown Rx Prednisone [predniSONE 10 mg 10 mg PO .TAPER #1 tab.ds.pk 03/08/20 Unknown Rx (6-Day Pack, 21 Tabs)] Active Meds: Active Medications Albuterol/Ipratropium (Duoneb *Not For Prn Use*) 1 ampul IH Q6HRT [facility] Last Admin: 03/17/20 13:30 Dose: 1 ampul Documented by: Lipase/Protease/Amylase (Aracelis Spann 10,500 Unit) 1 each FEEDTUBE PRN PRN PRN Reason: For Clogged Feeding Tube Enoxaparin Sodium (Enoxaparin) 40 mg SUB-Q QDAY@2200 [facility]; Protocol Fentanyl (Sublimaze) 50 mcg IV Q10MIN PRN PRN Reason: ANALGESIA Hydrophilic Ointment (Vaseline Lip Therapy) 1 applic TP Q2HR PRN PRN Reason: Dry Lips Propofol (Diprivan 10 Mg/Ml) 1,000 mg in 100 mls @ 3.198 mls/hr IV TITR [facility]; Protocol Last Admin: 03/17/20 15:41 Dose: 25 mcg/kg/min, 15.989 mls/hr Documented by: Fentanyl Citrate (Fentanyl Drip Premix) 2,000 mcg in 100 mls @ 4.309 mls/hr IV TITR GARY; Protocol Last Admin: 03/17/20 15:37 Dose: 2 mcg/kg/hr, 8.618 mls/hr Documented by: Sodium Chloride (Nacl 0.9% 1000 Ml) 1,000 mls @ 75 mls/hr IV DIRECT GARY Methylprednisolone Sodium Succinate (Solu-Medrol) 40 mg IV Q8HR [facility] Last Admin: 03/17/20 14:18 Dose: 40 mg Documented by: Multi-Ingred Cream/Lotion/Oil/Oint (Artificial Tears Ophth Oint) 1 applic OU Q4HR PRN PRN Reason: Dry Eye(s) Ondansetron HCl (Zofran) 4 mg IV Q8H PRN PRN Reason: Nausea And Vomiting Simple Syrup (Simple Syrup) 15 ml FEEDTUBE PRN PRN PRN Reason: Hypoglycemia Simple Syrup (Simple Syrup) 30 ml FEEDTUBE PRN PRN PRN Reason: Hypoglycemia Sodium Bicarbonate (Sodium Bicarbonate) 325 mg FEEDTUBE PRN PRN PRN Reason: For Clogged Feeding Tube Sodium Chloride (Sodium Chloride Flush Syringe 10 Ml) 10 ml IV BID [facility] Last Admin: 03/17/20 14:19 Dose: 10 ml Documented by: Sodium Chloride (Sodium Chloride Flush Syringe 10 Ml) 10 ml IV PRN PRN PRN Reason: LINE FLUSH Physical Examination Vital signs: Vital Signs Resp 20 03/16/20 21:29 Results - Laboratory Findings CBC and BMP: 03/16/20 21:43 03/16/20 21:43 ABG ABG pH 7.350 (7.320-7.450) 03/17/20 02:50 POC ABG pCO2 32.4 mmHg (32.0-48.0) 03/17/20 02:50 POC ABG pO2 227.5 mmHg (83-108) H 03/17/20 02:50 POC ABG HCO3 17.5 03/17/20 02:50 Abnormal lab findings: Abnormal Labs 03/16/20 03/16/20 03/16/20 21:43 21:43 21:52 WBC 22.3 H MCV 99 H MCH 33 H Lymphocytes % (Manual) 42.0 H Seg Neutrophils # Man 10.5 H Lymphocytes # (Manual) 9.4 H Monocytes # (Manual) 1.3 H Basophils # (Manual) 0.2 H ABG pH POC ABG pO2 ABG Potassium ABG Chloride ABG Glucose Carbon Dioxide 13 L Glucose 211 H POC Glucose Lactic Acid 9.00 H* Arterial Blood Glucose Arterial Blood Ionized Calcium 03/16/20 03/16/20 03/17/20 22:39 22:53 02:50 WBC MCV MCH Lymphocytes % (Manual) Seg Neutrophils # Man Lymphocytes # (Manual) Monocytes # (Manual) Basophils # (Manual) ABG pH 7.191 L POC ABG pO2 227.5 H ABG Potassium 4.6 H ABG Chloride 114.0 H ABG Glucose 265 H 132 H Carbon Dioxide Glucose POC Glucose Lactic Acid 4.40 H* Arterial Blood Glucose 265 H 132 H Arterial Blood Ionized Calcium 4.3 L 03/17/20 03/17/20 03/17/20 06:07 09:24 10:14 WBC MCV MCH Lymphocytes % (Manual) Seg Neutrophils # Man Lymphocytes # (Manual) Monocytes # (Manual) Basophils # (Manual) ABG pH POC ABG pO2 ABG Potassium ABG Chloride ABG Glucose Carbon Dioxide Glucose POC Glucose Lactic Acid 3.70 H* 3.20 H* 2.70 H* Arterial Blood Glucose Arterial Blood Ionized Calcium 03/17/20 03/17/20 12:19 15:08 WBC MCV MCH Lymphocytes % (Manual) Seg Neutrophils # Man Lymphocytes # (Manual) Monocytes # (Manual) Basophils # (Manual) ABG pH POC ABG pO2 ABG Potassium ABG Chloride ABG Glucose Carbon Dioxide Glucose POC Glucose 116 H Lactic Acid 2.10 H* Arterial Blood Glucose Arterial Blood Ionized Calcium
--- NOTE | 2020-03-17 17:03 | XRay Report ---
ABDOMEN 1 VIEW, 03/17/2020 INDICATION / CLINICAL INFORMATION: Esophagogastric tube placement COMPARISON: No relevant prior studies are available for comparison. FINDINGS: TUBES / LINES: An esophagogastric tube is present with distal tip and sidehole overlying the expected position of the distal stomach. BOWEL GAS PATTERN: The bowel gas pattern appears grossly nonobstructive. ADDITIONAL FINDINGS: No significant additional findings. IMPRESSION: 1. Placement of esophagogastric tube as above. Signer Name: Janna Mendez MD Signed: 03/17/2020 4:59 PM Workstation Name: [email or web address]
[2020-03-17] MEDS: diphenhydrAMINE 50 MG/ML VIAL IV SCH (17:37)
--- NOTE | 2020-03-17 20:19 | Consultation ---
PULMONARY CRITICAL CARE CONSULTATION NOTE CONSULTING PHYSICIAN: Dr. David Robledo. REASON FOR CONSULTATION: Acute respiratory failure, on mechanical ventilatory support, status asthmaticus. CHIEF COMPLAINT AND HISTORY OF PRESENT ILLNESS: The patient is a 25-year-old female with past medical history significant for asthma, which she describes as severe, easily triggered, and for which she has been intubated before, not this year. She came into the Emergency Room yesterday; she was eating a salad at home then went into an asthma attack. She also developed some hives. She was not sure what allergens she was exposed to. She does have a long history of asthma. In the Emergency Room, she was evaluated, and while she was in the Emergency Room, she became unresponsive. She was intubated, placed on mechanical ventilatory support and admitted to the Intensive Care Unit where I stopped by to see her. When I stopped by to see her, she was resting in bed, sitting up in bed really on a propofol drip, but able to write down her thoughts. She denied acute chest pain. She denied fevers or chills. She admitted that she felt a feeling of swelling or lump in her throat; however, has never been diagnosed with angioedema. When asked about her history of tobacco use/abuse history, she describes herself as a never smoker. This really is as much of the history of presentation as I have. PAST MEDICAL HISTORY: Asthma. PAST SURGICAL HISTORY: Denied. MEDICATIONS: She was on at the time I stopped by to see were reviewed. Pertinent medications also include the following: DuoNeb nebulizer treatments q. 4 hours, Lovenox 40 mg subcutaneously daily, propofol drip was going at 20 mcg per kilogram per minute, Solu-Medrol 40 mg IV q. 8 hours, Zofran 4 mg IV q. 8 hours p.r.n. nausea and vomiting. ALLERGIES: TO CARROTS, TO PEANUTS, TO CERTAIN FRUITS. DIET: Obese lady. Denies acute weight loss or gain in the preceding few weeks to months. FAMILY AND SOCIAL HISTORY: Lives in the community. Denies alcohol, tobacco, or illicit drug use or abuse. Family history, otherwise nonsignificant or noncontributory. REVIEW OF SYSTEMS: Difficult to obtain secondary to her medical and mental condition. She denies gross hematochezia or melena. No gross hematuria or dysuria. No hematemesis, no bloody tracheal secretions, no chest pains. Denies history of seizures. Denies polydipsia or polyuria. Denies heat or cold intolerance. States she is very emotional, but denies a history of depression. Complete 13-system review of systems was obtained. Pertinent positives and/or negatives as in body of history above, otherwise are noncontributory. PHYSICAL EXAMINATION: VITAL SIGNS: On examination at presentation, review of the vital signs show that she was afebrile 97.6 degrees Fahrenheit at presentation, pulse 106, respiratory rate 20 on the mechanical ventilator, blood pressure 165/82, O2 sats were 98%, inspired oxygen concentration at that time was not recorded. When I stopped by to see her, the O2 sats were 99% that was on the assist control mode of ventilation, tidal volume 450, rate of 18, PEEP of 6, and 30% of FiO2. GENERAL: She is a young looking female, normocephalic, atraumatic, on the mechanical ventilator without significant patient ventilator dyssynchrony. HEAD, EARS, NOSE AND THROAT: Anicteric. No conjunctival erythema. Oropharynx was moist. ET tube was taped around 24 cm at the lips. No gross jugular venous distention, no thyromegaly. NECK: Grossly, there were no palpable lymph nodes in the supraclavicular or submandibular lymph node chains. LUNGS: Auscultation of both lung thurman, actually clear with good bilateral air movement, no wheezing. HEART: Heart sounds 1 and 2 are heard. They were regular in rate and rhythm at the time of my evaluation without overt rubs or murmurs. ABDOMEN: Soft, full, bowel sounds are positive, nontender, no palpable hepatosplenomegaly. EXTREMITIES: Without overt digital clubbing, no cyanosis, no pedal edema. Pedal pulses are 2+ bilaterally. NEUROLOGIC: Pupils are equal, round, about 4 mm, reactive to light. Extraocular muscle movements are intact. She moves all 4 extremities spontaneously. SKIN: Normal turgor in the areas examined without overt cellulitis or rash. Please see the wound care nurse's note for full description of the skin. PSYCHIATRIC: Mood was normal. Affect was appropriate. LABORATORY DATA: From my review are as follows: Admission white cell count 22,300, hemoglobin 13.4, hematocrit 40.9, platelet count 259. Only 2% band forms on the manual differential. Arterial blood gas at presentation showed a pH of 7.19, pCO2 of 47, pO2 of 99 that was on 60% FiO2. ABG this morning showed a pH of 7.35, pCO2 of 32, pO2 of 228 that was on 60% FiO2. Serum sodium 139, potassium 3.8, chloride was 99, bicarbonate 13, BUN was 16, creatinine was 0.9, glucose was 211. Lactic acid level was 4.4. Liver function test within normal limits. Urinalysis was negative for nitrites and leukocyte esterase and unremarkable. Two sets of blood cultures, no growth to date. Chest x-ray has been reviewed. I have also reviewed the radiologist's interpretation and I do agree with it. The chest x-ray this morning shows evidence of right upper lobe collapse. The ET tube, however, is just below the clavicular heads in good position. No gross pneumothorax, no gross bony fracture. A KUB has just been done, it shows an NG tube tip in good position. ASSESSMENT: 1. Acute respiratory failure, presumably secondary to #2. 2. Acute asthma attack. 3. Anaphylaxis. 4. Oropharyngeal dysphagia. 5. Leukocytosis. 6. Mixed acidosis at presentation. 7. Lactic acidosis. PLAN: It is unclear the reason for her right upper lobe atelectasis on today's earlier chest x-ray. ET tube appears to be in good position. I have done a bedside spontaneous breathing trial, and she is actually pulling good volumes. I will leave her on the spontaneous breathing trial with a plan to rest her at night. I have done a cuff leak test, and she still has some evidence of possible angioedema, so there will be no plans for immediate extubation. Ventilator-associated pneumonia bundle has been introduced. Oxygen will be weaned to keep sats greater than or equal to about 90%. Aspiration precaution was included. She is hemodynamically stable otherwise. We will continue systemic steroids because I think there is probably an angioedema component. I put her on double dose Pepcid, antihistamine therapy, and I will also put her on scheduled Benadryl in the short term. Bronchodilators will be continued as ordered with pulmonary hygiene per the respiratory therapist. Enteral nutrition will be the feeding modality of choice. I will follow her clinically off antibiotics at this time, but I will go ahead and order a procalcitonin level to cable splicer helper clinical decision making. She will also be put on GI prophylaxis as mentioned above. She was appropriately on DVT prophylaxis with Lovenox. Flu and pneumonia vaccination will be addressed per protocol. Thank you very much for the consult. We will follow along and make further recommendations as the picture progresses/becomes clearer. JOB# [id number] MYCHAL/WILMA VILLEDA
[2020-03-17] MEDS: ENOXAPARIN 40 MG/0.4 ML INJ SUB-Q SCH (21:29)
[2020-03-17] MEDS: FAMOTIDINE 20 MG/2 ML INJ IV SCH (21:31)
[2020-03-18] MEDS: diphenhydrAMINE 50 MG/ML VIAL IV SCH ×3 (01:09→17:46)
[2020-03-18] MEDS: IPRATROPIUM/ALBUTEROL SULFATE 3 ML AMPUL.NEB IH SCH ×4 (01:48→20:29)
[2020-03-18] MEDS: fentaNYL DRIP Premix 2,000 MCG/100 ML BAG IV SCH (01:51)
[2020-03-18 02:37] LABS: Hematocrit 37.4 % (30.3-42.9); Hemoglobin 11.9 gm/dl (10.1-14.3); Mean Corpuscular HGB Conc 32 % (30-34); Mean Corpuscular Volume 97 fl (79-97); Platelet Count 210 K/mm3 (140-440); Red Blood Count 3.84 M/mm3 (3.65-5.03); Red Cell Distribution Width 14.9 % (13.2-15.2)
[2020-03-18 02:56] LABS: BUN/Creatinine Ratio 17; Blood Urea Nitrogen 10 mg/dL (7-17); Calcium 8.8 mg/dL (8.4-10.2); Hemolysis Index 0
[2020-03-18 05:30] LABS: Anisocytosis 1+; Basophils % (Manual) 0 % (0.0-1.8); Eosinophils % (Manual) 0 % (0.0-4.3); Platelet Estimate Consistent w Auto; Total Cells Counted 200
[2020-03-18] MEDS: methylPREDNISolone Sod Succinate 40 MG/1 ML INJ IV SCH ×4 (05:42→21:33)
[2020-03-18 05:50] LABS: ABG Base Excess -3.9 mmol/L (-2.0-3.0); ABG HCO3 19.8 mmol/L (20.0-26.0); ABG Methemoglobin 0.5 % (0.0-1.5); ABG Oxygen Saturation 98.6 % (95.0-99.0); ABG PCO2 32.3 mm Hg; ABG PH 7.406 pH Units (7.350-7.450); ABG PO2 129.7 mm Hg (80.0-90.0)
[2020-03-18 06:21] LABS: INR 1.04 (0.87-1.13)
[2020-03-18] MEDS: FAMOTIDINE 20 MG/2 ML INJ IV SCH ×2 (09:02→21:33)
--- NOTE | 2020-03-18 10:02 | XRay Report ---
CHEST 1 VIEW, 03/18/2020 8:41 AM CLINICAL INFORMATION/INDICATION: Respiratory failure COMPARISON: Chest radiograph, 03/17/2020 at 12:05 AM FINDINGS: SUPPORT DEVICES: Endotracheal tube and esophagogastric tube project in stable position. HEART: The cardiac silhouette is upper limits of normal in size. LUNGS/PLEURA: The previously seen right upper lobe atelectasis has resolved. No focal airspace consol idation, large pleural effusion or pneumothorax is visualized. ADDITIONAL FINDINGS: No additional acute findings. IMPRESSION: 1. Resolution of right upper lobe atelectasis. Signer Name: Janna Mendez MD Signed: 03/18/2020 9:57 AM Workstation Name: [id number]
--- NOTE | 2020-03-18 16:00 | Progress Note ---
Assessment and Plan Acute respiratory failure, presumably secondary to #2. Acute asthma attack. Anaphylaxis. Oropharyngeal dysphagia. Leukocytosis. Mixed acidosis at presentation. Lactic acidosis. - cuff leak test much better - continue Daily SAT and SBT assessment as tolerated (tentative extubation today is passes SBT) - continue accuchecks with glycemic control per SSI (While critically ill target blood glucose of 140-180 mg/dL; avoid hypoglycemia) - sedation prn for target RASS 0 to -1 (on hold now) - continue to wean supplemental oxygen for target O2 sat's > 90% acutely - VAP bundle addressed - continue lung protective strategies - continue bronchodilators with pulmonary hygiene per RT - wean per pulmonary driven protocols otherwise - avoid nephrotoxins, renally dose all medications - continue to avoid benzodiazepine's, reduce the possibility of delirium - AB's per ID rec's - prn analgesia per CPOT score - Maintenance of sleep-wake cycle, avoid delirium - continue enteral nutritional support at goal rate as tolerated - G.I. & VTE prophylaxis - PT/OT/ROM exercises - continue mobility protocols for pressure ulcer prophylaxis - Monitor hemodynamics closely - continue other care per attending / other consultants - discharge planning ongoing concurrently .... Re-evaluate in am & prn CONDITION: CRITICAL PROGNOSIS: GUARDED CODE STATUS: FULL CODE The high probability of a clinically significant, sudden or life-threatening deterioration of the [respiratory & cardiovascular] system(s) required my full and direct attention, intervention and personal management. The aggregate critical care time was [31] minutes without overlap. Time includes spent on; [x] Data Review and interpretation [x] Patient assessment and monitoring of vital signs [x] Documentation [x] Medication orders and management Subjective Date of service: 03/18/20 Principal diagnosis: Acute resp failure; Ac. asthma attack; Anaphylaxis; Leukocytosis Interval history: Patient is seen today for: Acute respiratory failure; Acute asthma attack; Anaphylaxis; Oropharyngeal dysphagia; Leukocytosis; Lactic acidosis. Seen and examined at bedside; 24hour events reviewed; nursing and respiratory care staff consulted; no adverse overnight events reported to me; resting peacefully in bed; denies acute chest pains; less anxious; on SBT and tolerating well so far Objective Vital Signs - 12hr 03/18/20 03/18/20 03/18/20 04:00 04:30 05:00 Temperature 97.9 F Pulse Rate 60 65 58 L Pulse Rate [ Bilateral Throughout] Pulse Rate [ 60 From Monitor] Respiratory 18 15 12 Rate Respiratory Rate [Bilateral Throughout] Blood Pressure 127/61 127/61 127/61 O2 Sat by Pulse 100 100 99 Oximetry 03/18/20 03/18/20 03/18/20 05:30 06:00 06:30 Temperature Pulse Rate 77 79 83 Pulse Rate [ Bilateral Throughout] Pulse Rate [ From Monitor] Respiratory 14 17 17 Rate Respiratory Rate [Bilateral Throughout] Blood Pressure 124/70 124/70 122/80 O2 Sat by Pulse 100 100 100 Oximetry 03/18/20 03/18/20 03/18/20 07:00 07:30 07:51 Temperature Pulse Rate 74 68 67 Pulse Rate [ Bilateral Throughout] Pulse Rate [ From Monitor] Respiratory 15 15 Rate Respiratory Rate [Bilateral Throughout] Blood Pressure 132/73 132/73 132/73 O2 Sat by Pulse 100 100 100 Oximetry 03/18/20 03/18/20 03/18/20 07:56 08:00 08:13 Temperature 97.9 F Pulse Rate 58 L 58 L Pulse Rate [ 68 Bilateral Throughout] Pulse Rate [ 74 From Monitor] Respiratory 12 13 Rate Respiratory 11 L Rate [Bilateral Throughout] Blood Pressure 132/73 134/70 O2 Sat by Pulse 100 100 Oximetry 03/18/20 03/18/20 03/18/20 08:30 09:00 09:30 Temperature Pulse Rate 73 64 60 Pulse Rate [ Bilateral Throughout] Pulse Rate [ From Monitor] Respiratory 13 13 12 Rate Respiratory Rate [Bilateral Throughout] Blood Pressure 134/70 127/75 134/70 O2 Sat by Pulse 100 100 Oximetry 03/18/20 03/18/20 03/18/20 10:00 10:30 11:00 Temperature Pulse Rate 73 59 L 61 Pulse Rate [ Bilateral Throughout] Pulse Rate [ From Monitor] Respiratory 16 14 13 Rate Respiratory Rate [Bilateral Throughout] Blood Pressure 134/70 125/69 125/69 O2 Sat by Pulse 100 97 Oximetry 03/18/20 03/18/20 03/18/20 11:30 12:00 12:30 Temperature 98.0 F Pulse Rate 87 77 85 Pulse Rate [ Bilateral Throughout] Pulse Rate [ 74 From Monitor] Respiratory 15 17 15 Rate Respiratory Rate [Bilateral Throughout] Blood Pressure 125/69 125/69 121/74 O2 Sat by Pulse 100 92 100 Oximetry 03/18/20 03/18/20 03/18/20 12:33 13:00 13:30 Temperature Pulse Rate 83 79 81 Pulse Rate [ Bilateral Throughout] Pulse Rate [ From Monitor] Respiratory 13 16 13 Rate Respiratory Rate [Bilateral Throughout] Blood Pressure 130/76 130/76 123/84 O2 Sat by Pulse 100 100 Oximetry 03/18/20 03/18/20 03/18/20 14:00 14:23 14:24 Temperature Pulse Rate 67 Pulse Rate [ 63 Bilateral Throughout] Pulse Rate [ From Monitor] Respiratory 19 Rate Respiratory 12 Rate [Bilateral Throughout] Blood Pressure 126/73 O2 Sat by Pulse 100 Oximetry 03/18/20 03/18/20 03/18/20 14:30 15:00 15:30 Temperature Pulse Rate 70 79 77 Pulse Rate [ Bilateral Throughout] Pulse Rate [ From Monitor] Respiratory 16 21 Rate Respiratory Rate [Bilateral Throughout] Blood Pressure 123/84 136/82 136/82 O2 Sat by Pulse 100 100 100 Oximetry 03/18/20 15:54 Temperature Pulse Rate 77 Pulse Rate [ Bilateral Throughout] Pulse Rate [ From Monitor] Respiratory Rate Respiratory Rate [Bilateral Throughout] Blood Pressure O2 Sat by Pulse Oximetry Constitutional: no acute distress, alert, other (young female on MVS with normal respiratory effort at rest) Eyes: non-icteric ENT: oropharynx moist, other (ETT 213 cm PATRICIA) Neck: supple, no lymphadenopathy, no JVD Effort: normal Ascultation: Bilateral: clear Percussion: Bilateral: not dull Cardiovascular: regular rate and rhythm Gastrointestinal: normoactive bowel sounds, soft, non-tender, non-distended Integumentary: normal Extremities: no cyanosis, no edema, pulses normal, no ischemia or petechiae Neurologic: normal mental status, non-focal exam, pupils equal and round, motor strength normal and Psychiatric: mood appropriate, affect normal CBC and BMP: 03/18/20 02:00 03/18/20 02:00 ABG, PT/INR, D-dimer: ABG ABG pH 7.360 (7.320-7.450) 03/18/20 12:08 POC ABG pCO2 38.6 mmHg (32.0-48.0) 03/18/20 12:08 ABG pCO2 32.3 mm Hg 03/18/20 05:05 POC ABG pO2 79.6 mmHg (83-108) L 03/18/20 12:08 ABG pO2 129.7 mm Hg (80.0-90.0) H 03/18/20 05:05 POC ABG HCO3 21.3 03/18/20 12:08 ABG O2 Saturation 98.6 % (95.0-99.0) 03/18/20 05:05 PT/INR, D-dimer PT 13.8 Sec. (12.2-14.9) 03/18/20 05:22 INR 1.04 (0.87-1.13) 03/18/20 05:22 Abnormal lab findings: Abnormal Labs 03/16/20 03/16/20 03/16/20 21:43 21:43 21:52 WBC 22.3 H MCV 99 H MCH 33 H Seg Neuts % (Manual) Lymphocytes % (Manual) 42.0 H Seg Neutrophils # Man 10.5 H Lymphocytes # (Manual) 9.4 H Monocytes # (Manual) 1.3 H Basophils # (Manual) 0.2 H ABG pH POC ABG pO2 ABG pO2 ABG HCO3 ABG Base Excess ABG Potassium ABG Chloride ABG Glucose Carbon Dioxide 13 L Glucose 211 H POC Glucose Lactic Acid 9.00 H* Arterial Blood Glucose Arterial Blood Ionized Calcium 03/16/20 03/16/20 03/17/20 22:39 22:53 02:50 WBC MCV MCH Seg Neuts % (Manual) Lymphocytes % (Manual) Seg Neutrophils # Man Lymphocytes # (Manual) Monocytes # (Manual) Basophils # (Manual) ABG pH 7.191 L POC ABG pO2 227.5 H ABG pO2 ABG HCO3 ABG Base Excess ABG Potassium 4.6 H ABG Chloride 114.0 H ABG Glucose 265 H 132 H Carbon Dioxide Glucose POC Glucose Lactic Acid 4.40 H* Arterial Blood Glucose 265 H 132 H Arterial Blood Ionized Calcium 4.3 L 03/17/20 03/17/20 03/17/20 06:07 09:24 10:14 WBC MCV MCH Seg Neuts % (Manual) Lymphocytes % (Manual) Seg Neutrophils # Man Lymphocytes # (Manual) Monocytes # (Manual) Basophils # (Manual) ABG pH POC ABG pO2 ABG pO2 ABG HCO3 ABG Base Excess ABG Potassium ABG Chloride ABG Glucose Carbon Dioxide Glucose POC Glucose Lactic Acid 3.70 H* 3.20 H* 2.70 H* Arterial Blood Glucose Arterial Blood Ionized Calcium 03/17/20 03/17/20 03/18/20 12:19 15:08 02:00 WBC 24.0 H MCV MCH Seg Neuts % (Manual) 92.5 H Lymphocytes % (Manual) 3.5 L Seg Neutrophils # Man 22.2 H Lymphocytes # (Manual) 0.8 L Monocytes # (Manual) 1.0 H Basophils # (Manual) ABG pH POC ABG pO2 ABG pO2 ABG HCO3 ABG Base Excess ABG Potassium ABG Chloride ABG Glucose Carbon Dioxide Glucose POC Glucose 116 H Lactic Acid 2.10 H* Arterial Blood Glucose Arterial Blood Ionized Calcium 03/18/20 03/18/20 03/18/20 02:00 05:05 12:08 WBC MCV MCH Seg Neuts % (Manual) Lymphocytes % (Manual) Seg Neutrophils # Man Lymphocytes # (Manual) Monocytes # (Manual) Basophils # (Manual) ABG pH POC ABG pO2 79.6 L ABG pO2 129.7 H ABG HCO3 19.8 L ABG Base Excess -3.9 L ABG Potassium ABG Chloride ABG Glucose 130 H Carbon Dioxide 20 L D Glucose 104 H POC Glucose Lactic Acid Arterial Blood Glucose 130 H Arterial Blood Ionized Calcium 03/18/20 12:22 WBC MCV MCH Seg Neuts % (Manual) Lymphocytes % (Manual) Seg Neutrophils # Man Lymphocytes # (Manual) Monocytes # (Manual) Basophils # (Manual) ABG pH POC ABG pO2 ABG pO2 ABG HCO3 ABG Base Excess ABG Potassium ABG Chloride ABG Glucose Carbon Dioxide Glucose POC Glucose 123 H Lactic Acid Arterial Blood Glucose Arterial Blood Ionized Calcium Chest x-ray: other Allied health notes reviewed: nursing
[2020-03-18] MEDS: ENOXAPARIN 40 MG/0.4 ML INJ SUB-Q SCH (21:33)
--- NOTE | 2020-03-18 22:35 | Progress Note ---
Assessment and Plan Critical care statement The high probability OF a clinically significant sudden or life-threatening deterioration of the cardiorespiratory system and endocrine system required my full and direct attention, intervention and postoperative management. The aggregate medical care time was 40 minutes. The time is in addition to time spent performing reported procedures but includes the followin: Data review and interpretation 2: Patient assessment and monitoring of vital signs 3: Documentation 4:: Medication orders and management (1) Anaphylactic reaction Improved Acute respiratory failure with hypoxia weaning in progress (2) Asthma exacerbation Current Visit: Yes Status: Acute Qualifiers: Asthma severity: severe Asthma persistence: persistent Qualified Code(s): J45.51 - Severe persistent asthma with (acute) exacerbation Plan to address problem: Patient continued on nebulizing treatment and IV steroid. Patient currently intubated and has been intubated on multiple occasions. Consult placed to motion picture camera lens technician for further evaluation. Patient extubated today Continue nebulizer treatments (3) Respiratory acidosis Current Visit: Yes Status: Acute Plan to address problem: Secondary to the asthma exacerbation. Will monitor ABG. Respiratory acidosis is improved (4) DVT prophylaxis Current Visit: No Status: Acute Plan to address problem: Patient placed on subcutaneous Lovenox. (5) Full code status Current Visit: Yes Status: Acute Subjective Date of service: 03/18/20 Principal diagnosis: Acute resp failure; Ac. asthma attack; Anaphylaxis; Leukocytosis Interval history: 25-year-old -[place] female with known history of asthma and peanut allergy presents to the emergency room today with an asthma attack and hives. Patient was eating some salad when symptoms suddenly developed. She started having difficulty breathing and felt her throat was closing up. She was found to be in severe respiratory distress upon arrival and subsequently intubated. Patient already intubated during my evaluation and therefore most of the history was gotten from the emergency room physician. Review of our records indicates she has been intubated on multiple occasions. Objective - Constitutional Vitals: Vital Signs - 12hr 03/18/20 03/18/20 03/18/20 11:00 11:30 12:00 Temperature 98.0 F Pulse Rate 61 87 77 Pulse Rate [ Bilateral Throughout] Pulse Rate [ 74 From Monitor] Respiratory 13 15 17 Rate Respiratory Rate [Bilateral Throughout] Blood Pressure 125/69 125/69 125/69 O2 Sat by Pulse 97 100 92 Oximetry 03/18/20 03/18/20 03/18/20 12:30 12:33 13:00 Temperature Pulse Rate 85 83 79 Pulse Rate [ Bilateral Throughout] Pulse Rate [ From Monitor] Respiratory 15 13 16 Rate Respiratory Rate [Bilateral Throughout] Blood Pressure 121/74 130/76 130/76 O2 Sat by Pulse 100 100 Oximetry 03/18/20 03/18/20 03/18/20 13:30 14:00 14:23 Temperature Pulse Rate 81 67 Pulse Rate [ Bilateral Throughout] Pulse Rate [ From Monitor] Respiratory 13 19 Rate Respiratory Rate [Bilateral Throughout] Blood Pressure 123/84 126/73 O2 Sat by Pulse 100 100 Oximetry 03/18/20 03/18/20 03/18/20 14:24 14:30 15:00 Temperature Pulse Rate 70 79 Pulse Rate [ 63 Bilateral Throughout] Pulse Rate [ From Monitor] Respiratory 16 21 Rate Respiratory 12 Rate [Bilateral Throughout] Blood Pressure 123/84 136/82 O2 Sat by Pulse 100 100 Oximetry 03/18/20 03/18/20 03/18/20 15:30 15:54 16:00 Temperature 98.4 F Pulse Rate 77 77 72 Pulse Rate [ Bilateral Throughout] Pulse Rate [ 93 H From Monitor] Respiratory 17 Rate Respiratory Rate [Bilateral Throughout] Blood Pressure 136/82 136/82 O2 Sat by Pulse 100 100 Oximetry 03/18/20 03/18/20 03/18/20 16:30 17:01 17:30 Temperature Pulse Rate Pulse Rate [ Bilateral Throughout] Pulse Rate [ From Monitor] Respiratory 18 Rate Respiratory Rate [Bilateral Throughout] Blood Pressure 121/78 118/82 121/78 O2 Sat by Pulse 100 100 100 Oximetry 03/18/20 03/18/20 03/18/20 18:00 18:30 19:00 Temperature Pulse Rate 70 85 79 Pulse Rate [ Bilateral Throughout] Pulse Rate [ From Monitor] Respiratory 15 27 H 21 Rate Respiratory Rate [Bilateral Throughout] Blood Pressure 116/86 116/86 116/86 O2 Sat by Pulse 100 100 100 Oximetry 03/18/20 03/18/20 03/18/20 19:31 20:00 20:01 Temperature 99.0 F Pulse Rate 108 H 67 Pulse Rate [ Bilateral Throughout] Pulse Rate [ 94 H From Monitor] Respiratory 31 H 18 18 Rate Respiratory Rate [Bilateral Throughout] Blood Pressure 97/50 108/76 O2 Sat by Pulse 98 98 100 Oximetry 03/18/20 03/18/20 03/18/20 20:30 20:31 20:32 Temperature Pulse Rate 81 Pulse Rate [ 83 Bilateral Throughout] Pulse Rate [ From Monitor] Respiratory 18 Rate Respiratory 22 Rate [Bilateral Throughout] Blood Pressure 108/76 O2 Sat by Pulse 100 100 Oximetry 03/18/20 03/18/20 03/18/20 21:00 21:31 22:01 Temperature Pulse Rate 87 78 Pulse Rate [ Bilateral Throughout] Pulse Rate [ From Monitor] Respiratory 19 16 Rate Respiratory Rate [Bilateral Throughout] Blood Pressure 97/50 120/84 121/76 O2 Sat by Pulse 100 100 98 Oximetry General appearance: Present: mild distress, well-nourished - EENT Eyes: PERRL, EOM intact ENT: hearing intact, clear oral mucosa Ears: bilateral: normal - Neck Neck: supple, normal ROM - Respiratory Respiratory effort: normal Respiratory: bilateral: CTA, rhonchi, wheezing - Breasts Breasts: normal - Cardiovascular Heart rate: 78 Rhythm: regular Heart Sounds: Present: S1 & S2. Absent: gallop, rub Extremities: pulses intact, No edema, normal color, Full ROM - Gastrointestinal General gastrointestinal: Present: soft, non-tender, non-distended, normal bowel sounds Rectal Exam: deferred - Genitourinary Female genitourinary: normal - Integumentary Integumentary: clear, warm, dry - Musculoskeletal Musculoskeletal: 1, strength equal bilaterally - Neurologic Neurologic: moves all extremities - Psychiatric Psychiatric: memory intact, appropriate mood/affect, intact judgment & insight - Allied health notes Allied health notes reviewed: nursing, case management - Labs CBC & Chem 7: 03/18/20 02:00 03/18/20 02:00 Labs: Abnormal lab results 03/18/20 03/18/20 03/18/20 Range/Units 02:00 02:00 05:05 WBC 24.0 H (4.5-11.0) K/mm3 Seg Neuts % (Manual) 92.5 H (40.0-70.0) % Lymphocytes % (Manual) 3.5 L (13.4-35.0) % Seg Neutrophils # Man 22.2 H (1.8-7.7) K/mm3 Lymphocytes # (Manual) 0.8 L (1.2-5.4) K/mm3 Monocytes # (Manual) 1.0 H (0.0-0.8) K/mm3 POC ABG pO2 (83-108) mmHg ABG pO2 129.7 H (80.0-90.0) mm Hg ABG HCO3 19.8 L (20.0-26.0) mmol/L ABG Base Excess -3.9 L (-2.0-3.0) mmol/L ABG Glucose (65-95) mg/dL Carbon Dioxide 20 L D (22-30) mmol/L Glucose 104 H (65-100) mg/dL POC Glucose (70-105) Arterial Blood Glucose (65-95) mg/dL 03/18/20 03/18/20 Range/Units 12:08 12:22 WBC (4.5-11.0) K/mm3 Seg Neuts % (Manual) (40.0-70.0) % Lymphocytes % (Manual) (13.4-35.0) % Seg Neutrophils # Man (1.8-7.7) K/mm3 Lymphocytes # (Manual) (1.2-5.4) K/mm3 Monocytes # (Manual) (0.0-0.8) K/mm3 POC ABG pO2 79.6 L (83-108) mmHg ABG pO2 (80.0-90.0) mm Hg ABG HCO3 (20.0-26.0) mmol/L ABG Base Excess (-2.0-3.0) mmol/L ABG Glucose 130 H (65-95) mg/dL Carbon Dioxide (22-30) mmol/L Glucose (65-100) mg/dL POC Glucose 123 H (70-105) Arterial Blood Glucose 130 H (65-95) mg/dL
[2020-03-19] MEDS: IPRATROPIUM/ALBUTEROL SULFATE 3 ML AMPUL.NEB IH SCH ×4 (02:00→19:20)
[2020-03-19] MEDS: diphenhydrAMINE 50 MG/ML VIAL IV SCH ×2 (02:49→10:36)
[2020-03-19] MEDS: methylPREDNISolone Sod Succinate 40 MG/1 ML INJ IV SCH ×3 (06:08→22:35)
[2020-03-19] MEDS: FAMOTIDINE 20 MG TAB PO SCH ×2 (10:36→22:35)
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
--- NOTE | 2020-03-19 11:38 | Progress Note ---
Assessment and Plan Critical care statement The high probability OF a clinically significant sudden or life-threatening deterioration of the cardiorespiratory system and endocrine system required my full and direct attention, intervention and postoperative management. The aggregate medical care time was 40 minutes. The time is in addition to time spent performing reported procedures but includes the followin: Data review and interpretation 2: Patient assessment and monitoring of vital signs 3: Documentation 4:: Medication orders and management (1) Anaphylactic reaction Improved Acute respiratory failure with hypoxia Extubated and doing well transferred to medical floor Asthma severity: severe Asthma persistence: persistent Qualified Code(s): J45.51 - Severe persistent asthma with (acute) exacerbation Plan to address problem: Patient continued on nebulizing treatment and IV steroid. Patient currently intubated and has been intubated on multiple occasions. Consult placed to ortho assistant for further evaluation. Patient extubated today Continue nebulizer treatments (3) Respiratory acidosis Current Visit: Yes Status: Acute Plan to address problem: Secondary to the asthma exacerbation. Will monitor ABG. Respiratory acidosis is improved (4) DVT prophylaxis Current Visit: No Status: Acute Plan to address problem: Patient placed on subcutaneous Lovenox. (5) Full code status Current Visit: Yes Status: Acute Subjective Date of service: 03/19/20 Principal diagnosis: Acute resp failure; Ac. asthma attack; Anaphylaxis; Leukocytosis Interval history: 25-year-old -[place] female with known history of asthma and peanut allergy presents to the emergency room today with an asthma attack and hives. Patient was eating some salad when symptoms suddenly developed. She started having difficulty breathing and felt her throat was closing up. She was found to be in severe respiratory distress upon arrival and subsequently intubated. Patient already intubated during my evaluation and therefore most of the history was gotten from the emergency room physician. Review of our records indicates she has been intubated on multiple occasions. Objective - Constitutional Vitals: Vital Signs - 12hr 03/19/20 03/19/20 03/19/20 00:00 00:01 00:31 Temperature 99.2 F Pulse Rate 69 64 67 Pulse Rate [ Bilateral Throughout] Pulse Rate [ 64 From Monitor] Respiratory 13 13 22 Rate Respiratory Rate [Bilateral Throughout] Blood Pressure 92/38 92/38 O2 Sat by Pulse 100 100 98 Oximetry 03/19/20 03/19/20 03/19/20 01:01 01:31 02:01 Temperature Pulse Rate 60 72 66 Pulse Rate [ Bilateral Throughout] Pulse Rate [ From Monitor] Respiratory 18 19 18 Rate Respiratory Rate [Bilateral Throughout] Blood Pressure 114/66 114/66 114/66 O2 Sat by Pulse 98 99 99 Oximetry 03/19/20 03/19/20 03/19/20 02:31 03:01 03:31 Temperature Pulse Rate 62 72 73 Pulse Rate [ Bilateral Throughout] Pulse Rate [ From Monitor] Respiratory 20 21 19 Rate Respiratory Rate [Bilateral Throughout] Blood Pressure 114/66 114/66 114/66 O2 Sat by Pulse 98 95 98 Oximetry 03/19/20 03/19/20 03/19/20 04:00 04:01 04:31 Temperature 99.1 F Pulse Rate 72 72 71 Pulse Rate [ Bilateral Throughout] Pulse Rate [ 72 From Monitor] Respiratory 16 16 19 Rate Respiratory Rate [Bilateral Throughout] Blood Pressure 114/66 114/66 O2 Sat by Pulse 99 99 99 Oximetry 03/19/20 03/19/20 03/19/20 05:01 05:31 06:01 Temperature Pulse Rate 72 66 65 Pulse Rate [ Bilateral Throughout] Pulse Rate [ From Monitor] Respiratory 19 21 19 Rate Respiratory Rate [Bilateral Throughout] Blood Pressure 106/50 106/50 100/53 O2 Sat by Pulse 99 100 99 Oximetry 03/19/20 03/19/20 03/19/20 06:31 07:01 07:31 Temperature Pulse Rate 63 61 62 Pulse Rate [ Bilateral Throughout] Pulse Rate [ From Monitor] Respiratory 20 19 21 Rate Respiratory Rate [Bilateral Throughout] Blood Pressure 100/53 100/53 100/53 O2 Sat by Pulse 97 98 98 Oximetry 03/19/20 03/19/20 03/19/20 07:59 08:00 08:01 Temperature 98.4 F Pulse Rate 68 69 Pulse Rate [ 72 Bilateral Throughout] Pulse Rate [ 68 From Monitor] Respiratory 16 21 Rate Respiratory 18 Rate [Bilateral Throughout] Blood Pressure 100/53 O2 Sat by Pulse 99 100 99 Oximetry 03/19/20 03/19/20 03/19/20 08:31 09:01 09:31 Temperature Pulse Rate 83 88 81 Pulse Rate [ Bilateral Throughout] Pulse Rate [ From Monitor] Respiratory 15 20 19 Rate Respiratory Rate [Bilateral Throughout] Blood Pressure 117/62 123/62 123/62 O2 Sat by Pulse 96 96 96 Oximetry 03/19/20 10:01 Temperature Pulse Rate 79 Pulse Rate [ Bilateral Throughout] Pulse Rate [ From Monitor] Respiratory 23 Rate Respiratory Rate [Bilateral Throughout] Blood Pressure 123/62 O2 Sat by Pulse 94 Oximetry General appearance: Present: no acute distress, well-nourished - EENT Eyes: PERRL, EOM intact ENT: hearing intact, clear oral mucosa Ears: bilateral: normal - Neck Neck: supple, normal ROM - Respiratory Respiratory effort: normal Respiratory: bilateral: CTA - Breasts Breasts: normal - Cardiovascular Rhythm: regular Heart Sounds: Present: S1 & S2. Absent: gallop, rub Extremities: pulses intact, No edema, normal color, Full ROM - Gastrointestinal General gastrointestinal: Present: soft, non-tender, non-distended, normal bowel sounds - Genitourinary Female genitourinary: normal - Integumentary Integumentary: clear, warm, dry - Musculoskeletal Musculoskeletal: 1, strength equal bilaterally - Neurologic Neurologic: moves all extremities - Psychiatric Psychiatric: memory intact, appropriate mood/affect, intact judgment & insight - Labs CBC & Chem 7: 03/18/20 02:00 03/18/20 02:00 Labs: Abnormal lab results 03/18/20 03/18/20 Range/Units 12:08 12:22 POC ABG pO2 79.6 L (83-108) mmHg ABG Glucose 130 H (65-95) mg/dL POC Glucose 123 H (70-105) Arterial Blood Glucose 130 H (65-95) mg/dL
[2020-03-19] MEDS: ENOXAPARIN 40 MG/0.4 ML INJ SUB-Q SCH (22:35)
[2020-03-19] MEDS ORDERED: ALBUTEROL 2.5 MG/3 ML NEBU IH PRN (23:29)
[2020-03-20] MEDS ORDERED: LIP THERAPY VASELINE TP PRN (01:20)
[2020-03-20] MEDS: methylPREDNISolone Sod Succinate 40 MG/1 ML INJ IV SCH (05:55)
--- NOTE | 2020-03-20 07:22 | Progress Note ---
Assessment and Plan Assessment and plan: 25-year-old -[place] female with known history of asthma and peanut allergy presents to the emergency room today with an asthma attack and hives. Patient was eating some salad when symptoms suddenly developed. She started having difficulty breathing and felt her throat was closing up. She was found to be in severe respiratory distress upon arrival and subsequently intubated. Patient already intubated during and currently extubated and on intranasal oxygen (1) Anaphylactic reaction Improved with Decadron and other appropriate medication Acute respiratory failure with hypoxia -Patient weaned of mechanical ventilation Leukocytosis -Due to steroid (2) Asthma exacerbation Current Visit: Yes Status: Acute Qualifiers: Asthma severity: severe Asthma persistence: persistent Qualified Code(s): J45.51 - Severe persistent asthma with (acute) exacerbation Plan to address problem: Patient continued on nebulizing treatment and IV steroid. Patient currently intubated and has been intubated on multiple occasions. Consult placed to helminthologist for further evaluation. Patient extubated today Continue nebulizer treatments (3) Respiratory acidosis Current Visit: Yes Status: Acute Plan to address problem: Secondary to the asthma exacerbation. Respiratory acidosis is improved (4) DVT prophylaxis Current Visit: No Status: Acute Plan to address problem: Patient placed on subcutaneous Lovenox. (5) Full code status Current Visit: Yes Status: Acute Disposition; per clinical course History Interval history: Patient was seen and evaluated this morning Hospitalist Physical - Physical exam Narrative exam: Not in cardiopulmonary distress. The patient appeared well nourished and normally developed. Vital signs as documented. Head exam is unremarkable. No scleral icterus . Neck is without jugular venous distension, thyromegaly, or carotid bruits. Lungs significant for wheezing Cardiac exam reveals regular rate and Rhythm. Abdominal exam reveals normal bowel sounds, nontender, no organomegaly. Extremities are nonedematous and both femoral and pedal pulses are normal. PERFORMANCE TESTER: Alert and oriented 3. No focal weakness. - Constitutional Vitals: Temp Pulse Resp BP Pulse Ox 99.1 F 72 17 130/71 98 03/20/20 04:08 03/20/20 04:08 03/20/20 04:08 03/20/20 04:08 03/20/20 04:08 General appearance: Present: no acute distress, well-nourished Results - Labs CBC & Chem 7: 03/18/20 02:00 03/18/20 02:00 Labs: Laboratory Last Values WBC 24.0 K/mm3 (4.5-11.0) H 03/18/20 02:00 RBC 3.84 M/mm3 (3.65-5.03) 03/18/20 02:00 Hgb 11.9 gm/dl (10.1-14.3) 03/18/20 02:00 Hct 37.4 % (30.3-42.9) 03/18/20 02:00 MCV 97 fl (79-97) 03/18/20 02:00 MCH 31 pg (28-32) 03/18/20 02:00 MCHC 32 % (30-34) 03/18/20 02:00 RDW 14.9 % (13.2-15.2) 03/18/20 02:00 Plt Count 210 K/mm3 (140-440) 03/18/20 02:00 Lymph # (Auto) Closing Specialist 03/16/20 21:43 Add Manual Diff Complete 03/18/20 02:00 Total Counted 200 03/18/20 02:00 Seg Neutrophils % Closing Specialist 03/18/20 02:00 Seg Neuts % (Manual) 92.5 % (40.0-70.0) H 03/18/20 02:00 Band Neutrophils % 0 % 03/18/20 02:00 Lymphocytes % (Manual) 3.5 % (13.4-35.0) L 03/18/20 02:00 Reactive Lymphs % (Man) 0 % 03/18/20 02:00 Monocytes % (Manual) 4.0 % (0.0-7.3) 03/18/20 02:00 Eosinophils % (Manual) 0 % (0.0-4.3) 03/18/20 02:00 Basophils % (Manual) 0 % (0.0-1.8) 03/18/20 02:00 Metamyelocytes % 0 % 03/18/20 02:00 Myelocytes % 0 % 03/18/20 02:00 Promyelocytes % 0 % 03/18/20 02:00 Blast Cells % 0 % 03/18/20 02:00 Nucleated RBC % Not Reportable 03/18/20 02:00 Seg Neutrophils # Man 22.2 K/mm3 (1.8-7.7) H 03/18/20 02:00 Band Neutrophils # 0.0 K/mm3 03/18/20 02:00 Lymphocytes # (Manual) 0.8 K/mm3 (1.2-5.4) L 03/18/20 02:00 Abs React Lymphs (Man) 0.0 K/mm3 03/18/20 02:00 Monocytes # (Manual) 1.0 K/mm3 (0.0-0.8) H 03/18/20 02:00 Eosinophils # (Manual) 0.0 K/mm3 (0.0-0.4) 03/18/20 02:00 Basophils # (Manual) 0.0 K/mm3 (0.0-0.1) 03/18/20 02:00 Metamyelocytes # 0.0 K/mm3 03/18/20 02:00 Myelocytes # 0.0 K/mm3 03/18/20 02:00 Promyelocytes # 0.0 K/mm3 03/18/20 02:00 Blast Cells # 0.0 K/mm3 03/18/20 02:00 WBC Morphology Not Reportable 03/18/20 02:00 Hypersegmented Neuts Not Reportable 03/18/20 02:00 Hyposegmented Neuts Not Reportable 03/18/20 02:00 Hypogranular Neuts Not Reportable 03/18/20 02:00 Smudge Cells Not Reportable 03/18/20 02:00 Toxic Granulation Not Reportable 03/18/20 02:00 Toxic Vacuolation Not Reportable 03/18/20 02:00 Dohle Bodies Not Reportable 03/18/20 02:00 Pelger-Huet Anomaly Not Reportable 03/18/20 02:00 James Rods Not Reportable 03/18/20 02:00 Platelet Estimate Consistent w auto 03/18/20 02:00 Clumped Platelets Not Reportable 03/18/20 02:00 Plt Clumps, EDTA Not Reportable 03/18/20 02:00 Large Platelets Not Reportable 03/18/20 02:00 Giant Platelets Not Reportable 03/18/20 02:00 Platelet Satelliting Not Reportable 03/18/20 02:00 Plt Morphology Comment Not Reportable 03/18/20 02:00 RBC Morphology Not Reportable 03/18/20 02:00 Dimorphic RBCs Not Reportable 03/18/20 02:00 Polychromasia Not Reportable 03/18/20 02:00 Hypochromasia Not Reportable 03/18/20 02:00 Poikilocytosis Not Reportable 03/18/20 02:00 Anisocytosis 1+ 03/18/20 02:00 Microcytosis Not Reportable 03/18/20 02:00 Macrocytosis Not Reportable 03/18/20 02:00 Spherocytes Not Reportable 03/18/20 02:00 Pappenheimer Bodies Not Reportable 03/18/20 02:00 Sickle Cells Not Reportable 03/18/20 02:00 Target Cells Not Reportable 03/18/20 02:00 Tear Drop Cells Not Reportable 03/18/20 02:00 Ovalocytes Not Reportable 03/18/20 02:00 Helmet Cells Not Reportable 03/18/20 02:00 [place] Bodies Not Reportable 03/18/20 02:00 [place] Rings Not Reportable 03/18/20 02:00 Will Cells Not Reportable 03/18/20 02:00 Bite Cells Not Reportable 03/18/20 02:00 Crenated Cell Not Reportable 03/18/20 02:00 Elliptocytes Not Reportable 03/18/20 02:00 Acanthocytes (Spur) Not Reportable 03/18/20 02:00 Rouleaux Not Reportable 03/18/20 02:00 Hemoglobin C Crystals Not Reportable 03/18/20 02:00 Schistocytes Not Reportable 03/18/20 02:00 Malaria parasites Not Reportable 03/18/20 02:00 Adiel Bodies Not Reportable 03/18/20 02:00 Hem Pathologist Commnt No 03/18/20 02:00 PT 13.8 Sec. (12.2-14.9) 03/18/20 05:22 INR 1.04 (0.87-1.13) 03/18/20 05:22 ABG pH 7.360 (7.320-7.450) 03/18/20 12:08 POC ABG pCO2 38.6 mmHg (32.0-48.0) 03/18/20 12:08 ABG pCO2 32.3 mm Hg 03/18/20 05:05 POC ABG pO2 79.6 mmHg (83-108) L 03/18/20 12:08 ABG pO2 129.7 mm Hg (80.0-90.0) H 03/18/20 05:05 POC ABG HCO3 21.3 03/18/20 12:08 ABG HCO3 19.8 mmol/L (20.0-26.0) L 03/18/20 05:05 ABG O2 Saturation 98.6 % (95.0-99.0) 03/18/20 05:05 ABG O2 Content 18.1 (0.0-44) 03/18/20 05:05 POC ABG Base Excess -3.7 03/18/20 12:08 ABG Base Excess -3.9 mmol/L (-2.0-3.0) L 03/18/20 05:05 ABG Hemoglobin 12.8 (12.0-17.5) 03/18/20 12:08 ABG Carboxyhemoglobin 1.0 % (0.0-5.0) 03/18/20 05:05 ABG Methemoglobin 0.5 % (0.0-1.5) 03/18/20 05:05 ABG Sodium 136.1 mmol/L (136.0-145.0) 03/18/20 12:08 ABG Potassium 4.0 mmol/L (3.40-4.50) 03/18/20 12:08 ABG Chloride 106.0 mmol/L (98-107) 03/18/20 12:08 ABG Glucose 130 mg/dL (65-95) H 03/18/20 12:08 Oxyhemoglobin 97.1 % (95.0-99.0) 03/18/20 05:05 FiO2 25.0 03/18/20 12:08 Sodium 141 mmol/L (137-145) 03/18/20 02:00 Potassium 4.2 mmol/L (3.6-5.0) 03/18/20 02:00 Chloride 104.8 mmol/L (98-107) 03/18/20 02:00 Carbon Dioxide 20 mmol/L (22-30) L D 03/18/20 02:00 Anion Gap 20 mmol/L 03/18/20 02:00 BUN 10 mg/dL (7-17) 03/18/20 02:00 Creatinine 0.6 mg/dL (0.6-1.2) 03/18/20 02:00 Estimated GFR > 60 ml/min 03/18/20 02:00 BUN/Creatinine Ratio 17 % 03/18/20 02:00 Glucose 104 mg/dL (65-100) H 03/18/20 02:00 POC Glucose 123 (70-105) H 03/18/20 12:22 Lactic Acid 1.90 mmol/L (0.7-2.0) 03/17/20 22:42 Calcium 8.8 mg/dL (8.4-10.2) 03/18/20 02:00 Total Bilirubin 0.40 mg/dL (0.1-1.2) 03/16/20 21:43 AST 22 units/L (5-40) 03/16/20 21:43 ALT 11 units/L (7-56) 03/16/20 21:43 Alkaline Phosphatase 74 units/L (35-129) 03/16/20 21:43 Total Protein 7.9 g/dL (6.3-8.2) 03/16/20 21:43 Albumin 4.2 g/dL (3.9-5) 03/16/20 21:43 Albumin/Globulin Ratio 1.1 % 03/16/20 21:43 Procalcitonin 2.68 ng/mL (<0.15) 03/17/20 22:42 Arterial Blood Glucose 130 mg/dL (65-95) H 03/18/20 12:08 Arterial Blood Ionized Calcium 5.0 mg/dL (4.6-5.3) 03/18/20 12:08 Urine Color Yellow (Yellow) 03/16/20 Unknown Urine Turbidity Clear (Clear) 03/16/20 Unknown Urine pH 5.0 (5.0-7.0) 03/16/20 Unknown Ur Specific [place] 1.019 (1.003-1.030) 03/16/20 Unknown Urine Protein <15 mg/dl mg/dL (Negative) 03/16/20 Unknown Urine Glucose (UA) Neg mg/dL (Negative) 03/16/20 Unknown Urine Ketones Neg mg/dL (Negative) 03/16/20 Unknown Urine Blood Sm (Negative) 03/16/20 Unknown Urine Nitrite Neg (Negative) 03/16/20 Unknown Urine Bilirubin Neg (Negative) 03/16/20 Unknown Urine Urobilinogen < 2.0 mg/dL (<2.0) 03/16/20 Unknown Ur Leukocyte Esterase Neg (Negative) 03/16/20 Unknown Urine WBC (Auto) 1.0 /HPF (0.0-6.0) 03/16/20 Unknown Urine RBC (Auto) < 1.0 /HPF (0.0-6.0) 03/16/20 Unknown U Epithel Cells (Auto) 3.0 /HPF (0-13.0) 03/16/20 Unknown Urine Mucus Few /HPF 03/16/20 Unknown Microbiology: Microbiology 03/16/20 21:57 Peripheral/Venous Blood Culture - Preliminary NO GROWTH AFTER 72 HOURS 03/16/20 21:52 Peripheral/Venous Blood Culture - Preliminary NO GROWTH AFTER 72 HOURS 03/17/20 08:45 Tracheal Aspirate Sputum Culture - Final Potts/IV: Voiding Method Toilet IV Catheter Type [Right INT / Saline Lock Antecubital] IV Catheter Type [Right Hand] INT / Saline Lock IV Catheter Type [Left INT / Saline Lock External Jugular] Active Medications - Current Medications Current Medications: Generic Name Dose Route Start Last Admin Trade Name Freq PRN Reason Stop Dose Admin Albuterol 2.5 mg 03/19/20 23:29 Proventil IH Q4HRT PRN Shortness Of Breath Albuterol/Ipratropium 1 ampul 03/20/20 08:00 Duoneb *Not For Prn Use* IH TIDRT [facility] Enoxaparin Sodium 40 mg 03/17/20 22:00 03/19/20 22:35 Enoxaparin SUB-Q 40 mg QDAY@2200 [facility] Administration Protocol Famotidine 20 mg 03/19/20 10:00 03/19/20 22:35 Pepcid PO 20 mg BID GARY Administration Hydrophilic Ointment 1 applic 03/20/20 01:20 03/20/20 02:04 Vaseline Lip Therapy TP 1 applic DIRECT PRN Administration Dry Lips Methylprednisolone Sodium Succinate 40 mg 03/17/20 06:00 03/20/20 05:55 Solu-Medrol IV 40 mg Q8HR GARY Administration Multi-Ingred Cream/Lotion/Oil/Oint 1 applic 03/16/20 21:30 Artificial Tears Ophth Oint OU Q4HR PRN Dry Eye(s) Ondansetron HCl 4 mg 03/17/20 00:13 Zofran IV Q8H PRN Nausea And Vomiting Sodium Chloride 10 ml 03/17/20 10:00 03/19/20 22:35 Sodium Chloride Flush Syringe 10 Ml IV 10 ml BID GARY Administration Sodium Chloride 10 ml 03/17/20 00:13 Sodium Chloride Flush Syringe 10 Ml IV PRN PRN LINE FLUSH Nutrition/Malnutrition Assess - Dietary Evaluation Nutrition/Malnutrition Findings: Nutrition Notes Start: 03/17/20 09:15 Freq: Status: Active Protocol: Document 03/19/20 14:08 (Rec: 03/19/20 14:20 [id number]) Nutrition Notes Initial or Follow up Reassessment Other Pertinent Diagnosis Anaphylaxis, Asthma exacebation, respiratory acidosis Current Diet Clear liquid Labs/Tests Reviewed Pertinent Medications Solu-Medrol Height 5 ft 6 in Weight 86.183 kg Usual Body Weight 81.81 kg [place] Body Weight (kg) 59.09 BMI 30.7 Weight Status Obese Subjective/Other Information FU for diet edu. Pt extubated. Pt reports not needing education. Pt reports not eating breakfast and ont feeling hungry. Pt denied any food prefences and ONS. Percent of energy/protein needs met: 0%/0% Burn Absent Trauma Absent Current % PO Negligible Minimum of two criteria No physical signs of malnutrition #1 Nutrition Diagnosis Inadequate oral intake Etiology decreased appetite As Evidenced by Signs and Symptoms pt eating 0% of meals Diagnosis Progress(for reassessment Continues documentation) Is patient on ventilator? No Is Patient Ambulatory and/or Out of Bed Yes REE-([facility]-ambulatory/OOB) [ 2117.154 [id number]] Kcal/Kg value to use for calculation 18 Approximate Energy Requirements Using 1551 kcal/Kg Calculation Used for Recommendations Kcal/kg Additional Notes Pro: 58-73g (0.8-1g/kg AdjBW 72.6kg) Fluid: 1 ml/kcal Nutrition Intervention Change Diet Order: Advance when medically feasible Goal #1 Diet advancement Goal #2 Meet needs as best as possible via Cl liq diet Anticipated Discharge Needs: Unable to determine at this time Follow-Up By: 03/21/20 Additional Comments FU for diet advancement and intakes
[2020-03-20] MEDS: IPRATROPIUM/ALBUTEROL SULFATE 3 ML AMPUL.NEB IH SCH ×2 (07:56→14:06)
--- NOTE | 2020-03-20 09:53 | Discharge Summary ---
Providers - Providers Date of Admission: 03/17/20 00:15 Date of discharge: 03/20/20 Attending physician: KEN OCONNOR MD 03/17/20 00:18 Consult to Dietitian/Nutrition [CONS] Routine Physician Instructions: Reason For Exam: Reason for Consult: Diet education Consult to Physician [CONS] Routine Comment: Dr. Lou notified @ 0200 Consulting Provider: CLIFFORD POTTER Physician Instructions: Reason For Exam: Status Asthmaticus Primary care physician: DIE TURNER Hospitalization Reason for admission: Acute hypoxic respiratory failure, anaphylaxis reaction, asthma exacerbatio Condition: Stable Hospital course: 25-year-old -[place] female with known history of asthma and peanut al lergy presents to the emergency room today with an asthma attack and hives. Patient was eating some salad when symptoms suddenly developed. She started having difficulty breathing and felt her throat was closing up. She was found to be in severe respiratory distress upon arrival and subsequently intubated. Patient already intubated during and currently extubated and on intranasal oxygen (1) Anaphylactic reaction Improved with Decadron and other appropriate medication Acute respiratory failure with hypoxia -Patient was intubated on admission -Patient weaned off mechanical ventilation -Patient is breathing well and saturating good on room air Leukocytosis -Due to steroid (2) Asthma exacerbation Current Visit: Yes Status: Acute Qualifiers: Asthma severity: severe Asthma persistence: persistent Qualified Code(s): J45.51 - Severe persistent asthma with (acute) exacerbation Plan to address problem: Patient is off oxygen. Patient states she has pro-air at home and given prednisone at discharge. (3) Respiratory acidosis Current Visit: Yes Status: Acute Plan to address problem: Resolved. Disposition: DC-30 STILL A PATIENT Time spent for discharge: 32 minutes - Discharge Diagnoses (1) Anaphylactic reaction Status: Acute Qualifiers: Encounter type: initial encounter Qualified Code(s): T78.2XXA - Anaphylactic shock, unspecified, initial encounter (2) Asthma exacerbation Status: Acute Qualifiers: Asthma severity: severe Asthma persistence: persistent Qualified Code(s): J45.51 - Severe persistent asthma with (acute) exacerbation (3) Respiratory failure Status: Acute Qualifiers: Chronicity: acute Respiratory failure complication: hypoxia Qualified Code(s): J96.01 - Acute respiratory failure with hypoxia Core Measure Documentation - Palliative Care Palliative Care/ Comfort Measures: Not Applicable - Core Measures Any of the following diagnoses?: none Exam - Physical Exam Narrative exam: Not in cardiopulmonary distress. The patient appeared well nourished and normally developed. Vital signs as documented. Head exam is unremarkable. No scleral icterus . Neck is without jugular venous distension, thyromegaly, or carotid bruits. Lungs significant for wheezing Cardiac exam reveals regular rate and Rhythm. Abdominal exam reveals normal bowel sounds, nontender, no organomegaly. Extremities are nonedematous and both femoral and pedal pulses are normal. MICROBIOLOGY PROFESSOR: Alert and oriented 3. No focal weakness. - Constitutional Vitals: Temp Pulse Resp BP Pulse Ox 99.1 F 66 18 130/71 99 03/20/20 04:08 03/20/20 07:56 03/20/20 07:56 03/20/20 04:08 03/20/20 07:59 Plan Activity: no restrictions Weight Bearing Status: Full Weight Bearing Diet: regular Follow up with: PRIMARY CARE, [Primary Care Provider] - 3-5 Days Prescriptions: predniSONE [Deltasone] 20 mg PO DAILY 3 Days #5 tab
[2020-03-20] MEDS: FAMOTIDINE 20 MG TAB PO SCH (10:24)
[2020-03-20 12:22] VITALS: BP 123/74
== END 2020-03-20 15:57 | disposition home or self-care (01) | DRG 208 ==
LOC: ED 21:10 → CC1 03-17 00:15 → 3A 03-19 12:58
PROVIDERS: ADMIT Internal Medicine Geriatric Medicine; ATTEND Internal Medicine
PROC: 0BH17EZ Insertion of Endotracheal Airway into Trachea, Via Natural or Artificial Opening (ICD-10-PCS; principal; 2020-03-16)
PROC: 5A1945Z Respiratory Ventilation, 24-96 Consecutive Hours (ICD-10-PCS; 2020-03-16)
PROC: 4A033R1 Measurement of Arterial Saturation, Peripheral, Percutaneous Approach (ICD-10-PCS; 2020-03-16)
DX: J96.01 Acute respiratory failure with hypoxia (principal); J45.51 Severe persistent asthma with (acute) exacerbation; T78.2XXA Anaphylactic shock, unspecified, initial encounter; E87.2 Acidosis; Z91.010 Allergy to peanuts; Z91.018 Allergy to other foods; Z79.51 Long term (current) use of inhaled steroids; D72.829 Elevated white blood cell count, unspecified
CPT/HCPCS: 31500; 36415; 36600; 71045; 74018; 80048; 80053; 81001; 82140; 82803; 82805; 82962; 84145; 85007; 85025; 85610; 87040; 87070; 87205; 94002; 94003; 94640; 94644; 94760; 96361; 96374; 96375; G0378; J0171; J0692; J1200; J1650; J2060; J2704; J2920; J2930; J3010; J3475; J7030

== ENCOUNTER 2020-04-20 20:04 | Emergency (ER) | payer SELFPAY ==
[2020-04-20 20:46] LABS: Basophils # (Auto) 0.1 K/mm3 (0.0-0.1); Basophils % (Auto) 0.8 % (0.0-1.8); Eosinophils # (Auto) 0.3 K/mm3 (0.0-0.4); Eosinophils % (Auto) 2.4 % (0.0-4.3); Hematocrit 34.9 % (30.3-42.9); Hemoglobin 12.1 gm/dl (10.1-14.3); Lymphocytes # (Auto) 3.2 K/mm3 (1.2-5.4); Lymphocytes % (Auto) 25.4 % (13.4-35.0); Mean Corpuscular HGB Conc 35 % (30-34); Mean Corpuscular Volume 93 fl (79-97); Monocytes # (Auto) 0.7 K/mm3 (0.0-0.8); Monocytes % (Auto) 5.4 % (0.0-7.3); Platelet Count 209 K/mm3 (140-440); Red Blood Count 3.74 M/mm3 (3.65-5.03); Red Cell Distribution Width 14.3 % (13.2-15.2)
[2020-04-20 21:14] LABS: Alanine Aminotransferase 9 units/L (7-56); Albumin 3.9 g/dL (3.9-5); Blood Urea Nitrogen 7 mg/dL (7-17); Calcium 9.4 mg/dL (8.4-10.2); Hemolysis Index 0
--- NOTE | 2020-04-20 21:17 | Event Note ---
ED Screening Note Date of service: 04/20/20 Time: 21:17 ED Screening Note: Pt complains of R sided chest pain and SOB This initial assessment/diagnostic orders/clinical plan/treatment(s) is/are subject to change based on patients health status, clinical progression and re- assessment by fellow clinical providers in the ED. Further treatment and workup at subsequent clinical providers discretion. Patient/guardian urged not to elope from the ED as their condition may be serious if not clinically assessed and managed. Initial orders include: labs EKG CXR
[2020-04-20 21:18] LABS: BUN/Creatinine Ratio 12
--- NOTE | 2020-04-20 21:59 | XRay Report ---
CHEST 2 VIEWS INDICATION / CLINICAL INFORMATION: chest pain. COMPARISON: 03/18/2020 FINDINGS: SUPPORT DEVICES: None. HEART / MEDIASTINUM: No significant abnormality. LUNGS / PLEURA: No significant pulmonary or pleural abnormality. No pneumothorax. ADDITIONAL FINDINGS: No significant additional findings. IMPRESSION: No significant abnormality Signer Name: Christian Zamudio MD FACR Signed: 04/20/2020 9:54 PM Workstation Name: [id number]
[2020-04-21] MEDS ORDERED: methylPREDNISolone Sod Succinate 125 MG/2 ML INJ IM ONE (02:58)
[2020-04-21] MEDS ORDERED: IPRATROPIUM/ALBUTEROL SULFATE 3 ML AMPUL.NEB IH ONE (02:58)
[2020-04-21] MEDS ORDERED: ACETAMINOPHEN 500 MG TAB PO ONE (02:58)
--- NOTE | 2020-04-21 03:19 | Emergency Department Report ---
ED General Adult HPI - General Chief complaint: Chest Pain Stated complaint: CHEST PAINS Source: patient Mode of arrival: Ambulatory Limitations: No Limitations - History of Present Illness Initial comments: Patient is a A0 25-year-old -[place] female with a history of asthma who is approximately 7 weeks gestation presents to the ED with complaint of acute onset persistent shortness of breath persistent dry cough with chest wall pain for the last 12 hours. Patient states that she ran out of her inhaler about 12 hours ago and that her symptoms have been worsening since she ran out of her albuterol inhaler. Patient denies fever, chills, nasal and sinus congest ion, dizziness, syncope, change in vision, abdominal pain, nausea and vomiting or diarrhea, vaginal bleeding, vaginal discharge, dysuria or urinary frequency and urgency and sore throat. MD Complaint: shortness of breath; wheezing, chest wall pain -: Sudden, hour(s) (12) Location: chest Radiation: non-radiation Severity scale (0 -10): 5 Quality: aching, sharp Consistency: constant Improves with: medication (albuterol inhaler) Worsens with: none Associated Symptoms: denies other symptoms, chest pain (chest wall), cough, shortness of breath. denies: confusion, diaphoresis, fever/chills, headaches, loss of appetite, malaise, nausea/vomiting, rash, seizure, syncope, weakness Treatments Prior to Arrival: none - Related Data Previous Rx's Medication Instructions Recorded Last Taken Type Albuterol Mdi (or & Nicu Only) 2 puff IH QID PRN #1 inhalation 03/08/20 03/17/20 Rx [ProAir HFA Inhaler] Diclofenac Sodium 75 mg PO BID PRN #14 tablet.dr 03/08/20 Unknown Rx predniSONE [Deltasone] 20 mg PO DAILY 3 Days #5 tab 03/20/20 Unknown Rx Acetaminophen [Tylenol] 500 mg PO Q6HR PRN #24 tablet 04/21/20 Unknown Rx Albuterol Sulfate [Proventil Hfa] 1 - 2 puff IH Q6H PRN #1 hfa.aer.ad 04/21/20 Unknown Rx methylPREDNISolone [Medrol 4MG 4 mg PO DAILY #21 tab.ds.pk 04/21/20 Unknown Rx DOSEPAK (21 tabs)] Allergies Allergy/AdvReac Type Severity Reaction Status Date / Time carrot Allergy Angioedema Verified 09/01/16 01:50 peanut AdvReac Unknown Verified 05/26/15 01:58 fruit Allergy Angioedema Uncoded 09/01/16 01:50 ED Review of Systems ROS: Stated complaint: CHEST PAINS Other details as noted in HPI Constitutional: denies: chills, fever Eyes: denies: eye pain, eye discharge, vision change ENT: denies: ear pain, throat pain Respiratory: cough, shortness of breath, wheezing Cardiovascular: chest pain (chest wall pain). denies: palpitations Endocrine: no symptoms reported Gastrointestinal: denies: abdominal pain, nausea, diarrhea Genitourinary: denies: urgency, dysuria, discharge Musculoskeletal: denies: back pain, joint swelling, arthralgia Skin: denies: rash, lesions Neurological: denies: headache, weakness, paresthesias Psychiatric: denies: anxiety, depression Hematological/Lymphatic: denies: easy bleeding, easy bruising ED Past Medical Hx - Past Medical History Previous Medical History?: Yes Hx Asthma: Yes - Surgical History Past Surgical History?: No - Social History Smoking Status: Never Smoker Substance Use Type: None - Medications Home Medications: Home Medications Medication Instructions Recorded Confirmed Last Taken Type Albuterol Mdi (or & Nicu Only) 2 puff IH QID PRN #1 inhalation 03/08/20 03/18/20 03/17/20 Rx [ProAir HFA Inhaler] Diclofenac Sodium 75 mg PO BID PRN #14 tablet.dr 03/08/20 03/17/20 Unknown Rx predniSONE [Deltasone] 20 mg PO DAILY 3 Days #5 tab 03/20/20 Unknown Rx Acetaminophen [Tylenol] 500 mg PO Q6HR PRN #24 tablet 04/21/20 Unknown Rx Albuterol Sulfate [Proventil Hfa] 1 - 2 puff IH Q6H PRN #1 hfa.aer.ad 04/21/20 Unknown Rx methylPREDNISolone [Medrol 4MG 4 mg PO DAILY #21 tab.ds.pk 04/21/20 Unknown Rx DOSEPAK (21 tabs)] ED Physical Exam - General Limitations: No Limitations General appearance: alert, in no apparent distress - Head Head exam: Present: atraumatic, normocephalic, normal inspection - Eye Eye exam: Present: normal appearance, PERRL, EOMI Pupils: Present: normal accommodation - ENT ENT exam: Present: normal exam, normal orophraynx, mucous membranes moist, TM's normal bilaterally, normal external ear exam - Neck Neck exam: Present: normal inspection, full ROM - Respiratory Respiratory exam: Present: wheezes (Mildly diffuse coarse wheezes throughout). Absent: respiratory distress, rales, rhonchi, stridor, chest wall tenderness, accessory muscle use, decreased breath sounds, prolonged expiratory - Cardiovascular Cardiovascular Exam: Present: regular rate, normal rhythm, normal heart sounds. Absent: systolic murmur, diastolic murmur, rubs, gallop - GI/Abdominal GI/Abdominal exam: Present: soft, normal bowel sounds. Absent: tenderness, guarding, rebound, hyperactive bowel sounds, hypoactive bowel sounds, organomegaly - Extremities Exam Extremities exam: Present: normal inspection, full ROM, normal capillary refill - Back Exam Back exam: Present: normal inspection, full ROM. Absent: tenderness, CVA tenderness (R), CVA tenderness (L), muscle spasm, paraspinal tenderness, vertebral tenderness - Neurological Exam Neurological exam: Present: alert, oriented X3, CN II-XII intact, normal gait, reflexes normal - Psychiatric Psychiatric exam: Present: normal affect, normal mood - Skin Skin exam: Present: warm, dry, intact, normal color. Absent: rash ED Course Vital Signs 04/20/20 22:05 Temperature 99.0 F Pulse Rate 84 Respiratory 20 Rate Blood Pressure 126/73 O2 Sat by Pulse 97 Oximetry ED Medical Decision Making - Lab Data Result diagrams: 04/20/20 20:29 04/20/20 20:29 - Radiology Data Radiology results: report reviewed, image reviewed Findings [address] [address] XRay Report Signed Patient: TOYA WHITE MR#: [id number] : 1995 Acct:[id number] Age/Sex: 25 / F ADM Date: 04/20/20 Loc: ED Attending Dr: Ordering Physician: CECILIA HOOD Date of Service: 04/20/20 Procedure(s): XR chest routine 2V Accession Number(s): [id number] cc: CECILIA HOOD Fluoro Time In Minutes: CHEST 2 VIEWS INDICATION / CLINICAL INFORMATION: chest pain. COMPARISON: 03/18/2020 FINDINGS: SUPPORT DEVICES: None. HEART / MEDIASTINUM: No significant abnormality. LUNGS / PLEURA: No significant pulmonary or pleural abnormality. No pneumothorax. ADDITIONAL FINDINGS: No significant additional findings. IMPRESSION: No significant abnormality Signer Name: Christian Zamudio MD FACR Signed: 04/20/2020 9:54 PM Workstation Name: [id number] Transcribed By: Dictated By: Christian Zamudio MD Electronically Authenticated By: Christian Zamudio MD Signed Date/Time: 04/20/202153 DD/ 53 TD/TT: - Medical Decision Making This is a A0 25-year-old -[place] female with a history of asthma who is approximately 7 weeks gestation presents to the ED with complaint of acute onset persistent shortness of breath persistent dry cough with chest wall pain for the last 12 hours. Patient states that she ran out of her inhaler about 12 hours ago and that her symptoms have been worsening since she ran out of her albuterol inhaler. In the ED, patient is alert and oriented x3 and is not in distress. Chest x-ray shows no acute cardiopulmonary abnormalities or pneumonitis. Lab test results were reviewed and showed acute leukocytosis 12,600 and mild hypokalemia of 3.3 mmol/L. Patient received DuoNeb treatment and Solu-Medrol in the ED. Patient also received Tylenol for pain in the ED. On reevaluation. Patient wheezing improved significantly and resolved pain also resolved with medications. Patient was discharged home on albuterol inhaler and steroids Dosepak. Patient was advised to follow-up with primary care physician in 3 to 5 days for reevaluation. Patient was advised to return to the ED immediately if symptoms get worse. - Differential Diagnosis asthma; bronchitis; pneumonia; URI Critical care attestation.: If time is entered above; I have spent that time in minutes in the direct care of this critically ill patient, excluding procedure time. ED Disposition Clinical Impression: Shortness of breath, Acute chest wall pain Asthmatic bronchitis with acute exacerbation Qualifiers: Asthma severity: mild Asthma persistence: intermittent Qualified Code(s): J45.21 - Mild intermittent asthma with (acute) exacerbation Disposition: -01 TO HOME OR SELFCARE Is pt being admited?: No Does the pt Need Aspirin: No Condition: Stable Instructions: Shortness of Breath, Adult, [id number], Chest Wall Pain, Ea sy-to-Read, Nonspecific Chest Pain, Adult, [id number], Asthma, Adult, [id number], Chest Pain (ED) Additional Instructions: All lab test results are unremarkable and chest x-ray shows no acute cardiopulmonary abnormalities or pneumonitis. Therefore take medication as ad vised, drink plenty of fluids and follow-up with your primary care physician in 5 to 7 days for reevaluation. Return to the ED immediately if symptoms get worse. Prescriptions: Acetaminophen [Tylenol] 500 mg PO Q6HR PRN #24 tablet PRN Reason: Pain , Severe (7-10) methylPREDNISolone [Medrol 4MG DOSEPAK (21 tabs)] 4 mg PO DAILY #21 tab.ds.pk Albuterol Sulfate [Proventil Hfa] 1 - 2 puff IH Q6H PRN #1 hfa.aer.ad PRN Reason: Dyspnea Referrals: [facility] [Provider Group] - 3-5 Days Time of Disposition: 03:19 Print Language: BELARUSIAN
[2020-04-21 04:18] VITALS: BP 130/82
== END 2020-04-21 05:02 | disposition home or self-care (01) ==
LOC: ED 20:04
DX: J44.1 Chronic obstructive pulmonary disease with (acute) exacerbation (principal); Z79.899 Other long term (current) drug therapy; Z91.010 Allergy to peanuts; Z91.018 Allergy to other foods
CPT/HCPCS: 36415; 71046; 80053; 84484; 84703; 85025; 93005; 94644; 96372; 99284; J2930; 94640